=== PATIENT | male | born 1965 | race Caucasian/White ===

== ENCOUNTER 2020-06-26 16:11 | Outpatient (CLI) | payer BC, SELFPAY ==
[2020-06-27 23:29] LABS: SARS-CoV-2 RNA PCR Negative
== END 2020-06-26 16:12 | disposition home or self-care (01) ==
LOC: CHSLAB 16:20
DX: R06.00 Dyspnea, unspecified (principal); Z20.828 Contact with and (suspected) exposure to other viral communicable diseases
CPT/HCPCS: C9803; U0003

== ENCOUNTER 2020-07-04 15:01 | Emergency (ER) | payer BC, SELFPAY ==
--- NOTE | ~2020-07-04 | XR_ITS ---
EXAMINATION: XR chest 2V DATE: 07/04/2020 17:48 INDICATION: Cough and shortness of breath. Multiple myeloma. TECHNIQUE: PA and lateral views of the chest were obtained. COMPARISON: None FINDINGS: Predominately streaky and linear opacities at the anterior lung bases and favor atelectasis over pneu monia. Approximately 1.1 cm indeterminate nodule in the left upper lung zone projecting along the inf erior margin of the anterior second rib. No pleural effusion or pneumothorax. Heart size is normal. M oderate-sized hiatal hernia. Minimal anterior wedging of a lower thoracic vertebral bodies. IMPRESSION: 1. Opacities at the anterior lung bases and favor atelectasis over pneumonia. 2. 1.1 cm indeterminate left upper lobe pulmonary nodule. Recommend chest CT for further evaluation. 3. Moderate-sized hiatal hernia. Reviewed, dictated and finalized at location A. CIENCY ANALYST IMPRESSION: 1. Opacities at the anterior lung bases and favor atelectasis over pneumonia. 2. 1.1 cm indeterminate left upper lobe pulmonary nodule. Recommend chest CT fo r further evaluation. 3. Moderate-sized hiatal hernia.
[2020-07-04 15:17] VITALS: BP 163/97; PULSE 86; RESP 22; TEMP 36.8; O2SAT 95
[2020-07-04 16:56] LABS: Basophils Absolute Auto 0.17 K/mm3 (0.00-0.10); Basophils Percent Auto 1.8 % (0.0-1.0); Eosinophils Absolute Auto 0.78 K/mm3 (0.02-0.50); Eosinophils Percent Auto 8.3 % (1.0-6.0); Hematocrit 34.7 % (40.0-54.0); Hemoglobin 11.8 g/dL (14.0-18.0); Immature Granulocyte Absolute 0.09 K/mm3 (0.00-0.00); Lymphocytes Absolute Auto 1.28 K/mm3 (1.10-4.50); Lymphocytes Percent Auto 13.5 % (18.0-42.0); Mean Corpuscular Hemoglobin 31.7 pg (27.0-31.0); Mean Corpuscular Volume 93.3 fL (78.0-102.0); Mean Platelet Volume 8.8 fl (8.7-11.0); Monocytes Absolute Auto 0.96 K/mm3 (0.10-0.90); Monocytes Percent Auto 10.2 % (2.0-11.0); Neutrophils Absolute Auto 6.2 K/mm3 (1.7-7.2); Neutrophils Percent Auto 65.2 % (50.0-70.0); Platelet Count Result 329 K/mm3 (150-420); Red Blood Count 3.72 M/mm3 (4.70-6.10); Red Cell Distribution Width 13.2 % (11.6-14.4); White Blood Count 9.5 K/mm3 (4.8-10.8)
[2020-07-04 17:04] LABS: CRP 8.1 mg/dL (0.0-0.9)
[2020-07-04 17:16] LABS: Add Urine Microscopic? YES; Appearance Urine Clear (Clear); Bilirubin Urine Negative (Negative); Blood Urine Negative (Negative); Color Urine Yellow (Yellow); Glucose Urine UA Negative (Negative); Ketones Urine Trace (Negative); Leukocyte Esterase Ur Negative (Negative); Nitrate Urine Negative (Negative); Protein Urine Negative (Negative); Specific Grav Ur >= 1.030 (1.010-1.020); Urobilinogen Urine 0.2 mg/dL (0.2-1.0); pH Urine 5.5 (5.0-8.0)
--- NOTE | 2020-07-04 17:25 | ED.SOB ---
HPI - SOB/Dyspnea General Chief Complaint: Shortness of Breath/Dyspnea Stated Complaint: SOB,night sweats,cough. Time Seen by Provider: 07/04/20 15:25 Source: patient Mode of arrival: ambulatory Limitations: no limitations History of Present Illness HPI Narrative: Patient comes in with history of M Myeloma and stem cell transplant. He has had night sweats and chills off and on for 2 days. He has also had clear thin nasal discharge, and a cough. He has been treated for an abscessed tooth which has not totally resolved, but it is feeling better. He has had no fever, or other complaints. Chills have been moderate, resolved by themselves, and off and on for the last 2 days. MD elicited complaint: shortness of breath and cough Pertinent past history: other (stem cell transplant) Onset (ago): day(s) (2) Timing: intermittent Severity: moderate Exacerbating factors: nothing Relieving factors: nothing Associated symptoms: denies other symptoms Related Data Home Medications Medication Instructions Recorded Confirmed amoxicillin-pot clavulanate 1 tablet PO DAILY 07/04/20 07/04/20 lenalidomide [Revlimid] 10 mg PO HS 07/04/20 07/04/20 zolpidem 5 mg PO HS 07/04/20 07/04/20 Allergies Allergy/AdvReac Type Severity Reaction Status Date / Time No Known Allergies Allergy Verified 07/04/20 15:32 Review of Systems Constitutional: Constitutional: Reports no additional constitutional complaints Eyes: Eyes: Reports no additional eye complaints ENT: Reports system reviewed and no additional complaints, except as documented Cardiovascular: Comments: clear thin nasal discharge Respiratory: Respiratory: Reports no additional respiratory complaints Gastrointestinal: Gastrointestinal: Reports no additional gastrointestinal complaints Genitourinary: Genitourinary: Reports no additional male genitourinary complaints Musculoskeletal: Musculoskeletal: Reports no additional musculoskeletal complaints Integumentary/Breasts: Skin/Breast: Reports system reviewed and no additional complaints, except as docu Neurologic: Reports system reviewed and no additional complaints, except as documented Psychiatric: Psychiatric: Reports no additional psychiatric complaints Endocrine: Endocrine: Reports no additional endocrine complaints Hematologic/Lymphatic: Hematologic/Lymphatic: Reports no additional hematologic/lymphatic complaints Allergic/Immunologic: Allergic/Immunologic: Reports no additional allergic/immunologic complaints [facility] Past Medical History Medical History (Updated 07/05/20 @ 00:00 by Background Daemon) Multiple myeloma Surgical History Surgical History (Updated 07/04/20 @ 18:29 by Christiano Eugene MD) Stem cells transplant status Family History Family History (Updated 07/04/20 @ 18:36 by Christiano Eugene MD) Father Bladder cancer Social History Social History (Updated 07/04/20 @ 18:37 by Christiano Eugene MD) Smoking status: Former smoker Tobacco type: cigarettes Alcohol intake: current Alcohol use details: rare Substance use: never Exam Narrative: Exam Narrative: Chills at home off and on for 2 days, no fever, mild shortness of breath, cough, night sweats, clear runny nose, flu shot earlier this year Const: General: no acute distress HENMT: Head: normal to inspection Ears: external ears normal General nose exam: Normal external nose present Face and sinus: normal facial exam Other: clear thin runny nose Eyes: Conjunctivae: conjunctivae normal Neck: Neck: normal visual inspection and no lymphadenopathy Chest: Chest palpation & inspection: normal inspection of the chest Resp: Effort & Inspection: normal respiratory effort Auscultation: clear to auscultation bilaterally Cardio: Rate: regular rate Rhythm: regular rhythm GI: GI Palp: Yes Soft to palpation Skin: General skin exam: normal color Neuro: General: patient oriented x3 and moves all extremities Extrem: General: normal t
[2020-07-04 17:27] LABS: Bacteria Urine Trace /hpf; Mucus Urine Heavy /lpf; RBC Urine 0-2 /hpf (0-2); Squamous Epithelial Cell Urine Rare /hpf (Few); WBC Urine 0-3 /hpf (0-3)
[2020-07-04 17:32] LABS: SARS-CoV-2 Ag Negative (Negative)
[2020-07-04 17:54] LABS: Erythrocyte Sedimentation Rate 40 mm/hr (0-20)
[2020-07-04 18:04] VITALS: BP 121/81; PULSE 72; RESP 18; O2SAT 94
[2020-07-04] MEDS: cefTRIAXone 1 GM VIAL IM (19:09)
--- NOTE | 2020-07-04 19:11 | PC.NURSE ---
REPORT TO DEV
[2020-07-04 19:20] VITALS: BP 127/82; PULSE 73; RESP 20; O2SAT 95
== END 2020-07-04 19:25 | disposition home or self-care (01) ==
PROVIDERS: Emergency Provider Emergency Medicine
DX: J18.9 Pneumonia, unspecified organism (principal); Z20.822 Contact with and (suspected) exposure to COVID-19; Z87.891 Personal history of nicotine dependence; C90.00 Multiple myeloma not having achieved remission
CPT/HCPCS: 36415; 71046; 81001; 85025; 85652; 86140; 87040; 87426; 96372; 99283; A9270; C9803; J0696

== ENCOUNTER 2020-08-26 09:43 | Outpatient (CLI) | payer BC, SELFPAY ==
[2020-08-26 09:58] LABS: Basophils Absolute Auto 0.15 K/mm3 (0.00-0.10); Basophils Percent Auto 3.5 % (0.0-1.0); Eosinophils Absolute Auto 0.35 K/mm3 (0.02-0.50); Eosinophils Percent Auto 8.2 % (1.0-6.0); Hematocrit 40.7 % (40.0-54.0); Hemoglobin 13.2 g/dL (14.0-18.0); Immature Granulocyte Absolute 0.01 K/mm3 (0.00-0.00); Immature Granulocyte Percent A 0.2 % (0.0-0.0); Lymphocytes Absolute Auto 1.16 K/mm3 (1.10-4.50); Lymphocytes Percent Auto 27.3 % (18.0-42.0); Mean Corpuscular HGB Conc 32.4 g/dL (32.0-36.0); Mean Corpuscular Hemoglobin 30.1 pg (27.0-31.0); Mean Corpuscular Volume 92.9 fL (78.0-102.0); Mean Platelet Volume 8.6 fl (8.7-11.0); Monocytes Absolute Auto 0.59 K/mm3 (0.10-0.90); Monocytes Percent Auto 13.9 % (2.0-11.0); Neutrophils Percent Auto 46.9 % (50.0-70.0); Platelet Count Result 217 K/mm3 (150-420); Red Blood Count 4.38 M/mm3 (4.70-6.10); Red Cell Distribution Width 13.6 % (11.6-14.4); White Blood Count 4.3 K/mm3 (4.8-10.8)
[2020-08-26 11:11] LABS: Alanine Aminotransferase 29 U/L (16-63); Albumin Level 3.7 g/dL (3.4-5.0); Alkaline Phosphatase 55 U/L (46-116); Anion Gap 7 mmol/L (8-16); Aspartate Amino Transferase 20 U/L (15-37); Bilirubin,Total 0.6 mg/dL (0.00-1.00); Blood Urea Nitrogen 21 mg/dL (7-18); Calcium 8.5 mg/dL (8.5-10.1); Carbon Dioxide 30 mmol/L (21-32); Chloride 103 mmol/L (98-108); Estimated Glomerular Filt Rate > 60; Glucose 97 mg/dL (70-99); Osmolality Calculated 293 mOsm/kg (285-295); Potassium 4.3 mmol/L (3.5-5.1); Sodium 140 mmol/L (136-145)
== END 2020-08-26 09:44 | disposition home or self-care (01) ==
LOC: CHSLAB 09:48
DX: C90.01 Multiple myeloma in remission (principal)
CPT/HCPCS: 36415; 80053; 85025

== ENCOUNTER 2021-05-03 12:24 | Outpatient (CLI) | payer BC, SELFPAY ==
[2021-05-03 12:37] LABS: Hematocrit 38.6 % (40.0-54.0); Hemoglobin 12.7 g/dL (14.0-18.0); Mean Corpuscular HGB Conc 32.9 g/dL (32.0-36.0); Mean Corpuscular Hemoglobin 31.1 pg (27.0-31.0); Mean Corpuscular Volume 94.4 fL (78.0-102.0); Mean Platelet Volume 8.9 fl (8.7-11.0); Platelet Count Result 231 K/mm3 (150-420); Red Blood Count 4.09 M/mm3 (4.70-6.10); Red Cell Distribution Width 15.8 % (11.6-14.4); White Blood Count 4.9 K/mm3 (4.8-10.8)
[2021-05-03 12:58] LABS: Band Neutrophils Percent 0 % (0-6); Basophils Absolute Manual 0.04 K/mm3 (0-0.1); Basophils Percent Manual 1 % (0-1); Eosinophils Absolute Manual 0.39 K/mm3 (0.02-0.5); Eosinophils Percent Manual 8 % (1-6); Lymphocytes Absolute Manual 0.83 K/mm3 (1.1-4.5); Lymphocytes Percent Manual 17 % (18-44); Monocytes Absolute Manual 0.88 K/mm3 (0.1-0.90); Monocytes Percent Manual 18 % (3-9); Neutrophils Absolute Manual 2.74 K/mm3 (1.3-6.7); Neutrophils Percent Manual 56 % (46-73); Platelet Estimate Adequate (Adequate); Total Cells Counted 100
== END 2021-05-03 12:25 | disposition home or self-care (01) ==
LOC: CHSLAB 12:28
DX: C90.01 Multiple myeloma in remission (principal)
CPT/HCPCS: 36415; 85025

== ENCOUNTER 2021-07-12 23:42 | Emergency (ER) | payer BC, SELFPAY ==
--- NOTE | ~2021-07-12 | XR_ITS ---
XR chest 2V DATE: 07/13/2021 00:09 INDICATION: Chest pain. Currently in remission for multiple myeloma TECHNIQUE: 2 views COMPARISON: 07/04/2020 2 view chest FINDINGS: Normal heart size. No hilar or mediastinal enlargement. Moderate size hiatal hernia. Prominent wide transverse discoid atelectasis or scar at the right lung base. There is mild infiltrate or atelectasis at the base of the lingula. The lungs otherwise appear clear. No pleural effusion or pulmonary vascular congestion or pneumothorax. IMPRESSION: Prominent discoid atelectasis or scar at right lung base Mild infiltrate or atelectasis at the base of the lingula Moderate size hiatal hernia Reviewed, dictated and finalized at location A. P WORK PROGRAM AIDE
--- NOTE | 2021-07-12 23:46 | ECG_ITS ---
Measurements Intervals [place] Rate: 46 P: 38 CT: 186 QRS: 15 QRSD: 89 T: 63 QT: 464 QTc: 410 Interpretive Statements SINUS BRADYCARDIA BASELINE WANDER- II, III, AVF ABNORMAL ECG Electronically Signed On 07-13-2021 6:31:33 SOUS CHEF KITCHEN MANAGER by Dom Mnea D.O.
[2021-07-12 23:47] VITALS: BP 208/103; PULSE 67; RESP 16; TEMP 36.2; O2SAT 100
--- NOTE | 2021-07-12 23:51 | ED.CHESTPAIN ---
HPI - Chest Pain General Chief Complaint: Chest Pain Stated Complaint: chest pain Source: patient History of Present Illness HPI narrative: this is a 56-year-old gentleman that presents with some what he describes his chest discomfort pointing to his epigastric area with a burning sensation that started a couple of hours ago, he said that he ate a guard cell at earlier today and believes that that may have triggered some epigastric discomfort. There is no shortness of breath some nausea with no vomiting no diaphoresis, patient is a nonsmoker does have a family history of early heart disease in his father. Patient has a history of multiple myeloma which she is being treated for. Currently no fever chills no diarrhea constipation no flank pain no dysuria. complaint: chest discomfort and other ( epigastric discomfort) Onset (ago): hour(s) Timing of current episode: constant Onset: after eating Pain location: epigastric Pain radiation: none Severity: mild Quality: burning Related Data Home Medications Medication Instructions Recorded Confirmed lenalidomide [Revlimid] 10 mg PO HS 07/04/20 07/12/21 zolpidem 5 mg PO HS 07/04/20 07/12/21 Allergies Allergy/AdvReac Type Severity Reaction Status Date / Time No Known Allergies Allergy Verified 07/12/21 23:54 Review of Systems Review of Systems: All systems reviewed & are unremarkable except as noted in HPI and below PMFSH Past Medical History Medical History Multiple myeloma Surgical History Surgical History Stem cells transplant status Family History Family History Father Bladder cancer Social History Social History Smoking status: Former smoker Tobacco type: cigarettes Alcohol intake: current Alcohol use details: rare Substance use: never Exam Const: General: no acute distress and alert Orientation/consciousness: patient oriented x3 HENMT: Head: normal to inspection Eyes: Conjunctivae: conjunctivae normal Pupils: Equal, round and reactive pupils present Neck: Neck: normal visual inspection, no lymphadenopathy and no meningeal signs Chest: Chest palpation & inspection: normal inspection of the chest Resp: Effort & Inspection: normal respiratory effort Cardio: Rate: regular rate Rhythm: regular rhythm GI: GI Palp: Yes Soft to palpation and Yes Tenderness to palpation present (GI) ( Epigastric tenderness with palpation) Urinary Catheter: Urinary Catheter: patent and draining Back/Spine/Pelvis: Back: no CVA tenderness Skin: General skin exam: normal color Rashes: no rashes Neuro: General: patient oriented x3 and moves all extremities Extrem: General: normal to inspection and no pedal edema Psych: Appearance: grossly normal Mental Status: mental status grossly normal Affect: normal affect Critical Care Time Critical Care Time Critical Care Time: No Discharge Plan Discharge Clinical Impression: Upper respiratory tract infection Qualifiers: URI type: unspecified URI Qualified Code(s): J06.9 - Acute upper respiratory infection, unspecified GERD (gastroesophageal reflux disease) Qualifiers: Esophagitis presence: esophagitis presence not specified Qualified Code(s): K21.9 - Gastro-esophageal reflux disease without esophagitis Patient Disposition: Home, Self-Care Condition: Stable Instructions: Antibiotic Form, Upper Respiratory Infection (ED), GERD (Gastroesophageal Reflux Disease) (ED) Additional Instructions: take medicine as prescribed and follow-up primary care physician if symptoms persist or worsen. Prescriptions: New pantoprazole [Protonix] 40 mg tablet,delayed release (DR/EC) 40 mg PO QAM 28 Days Qty: 28 RF: 0 azithromycin [Zithromax Z-Ashish] 250 mg tablet See Rx In
[2021-07-12] MEDS: MAG HYDROX/ALUMINUM HYD/SIMETH 30 ML, PHENobarb/HYOSCY/ATROPINE/SCOP 32.4 MG, LIDOCAINE... PO (23:52)
[2021-07-13 00:19] LABS: Hematocrit 38.1 % (40.0-54.0); Hemoglobin 12.5 g/dL (14.0-18.0); Mean Corpuscular HGB Conc 32.8 g/dL (32.0-36.0); Mean Corpuscular Hemoglobin 30.6 pg (27.0-31.0); Mean Corpuscular Volume 93.2 fL (78.0-102.0); Mean Platelet Volume 9.4 fl (8.7-11.0); Platelet Count Result 227 K/mm3 (150-420); Red Blood Count 4.09 M/mm3 (4.70-6.10); Red Cell Distribution Width 15.9 % (11.6-14.4); White Blood Count 5.7 K/mm3 (4.8-10.8)
[2021-07-13 00:38] LABS: Alanine Aminotransferase 24 U/L (16-63); Albumin Level 3.5 g/dL (3.4-5.0); Alkaline Phosphatase 52 U/L (46-116); Anion Gap 7 mmol/L (8-16); Aspartate Amino Transferase 19 U/L (15-37); Bilirubin,Total 0.3 mg/dL (0.00-1.00); Blood Urea Nitrogen 18 mg/dL (7-18); Calcium 8.4 mg/dL (8.5-10.1); Carbon Dioxide 29 mmol/L (21-32); Chloride 102 mmol/L (98-108); Estimated CRCL calculation 58 ml/min; Estimated Glomerular Filt Rate 57; Glucose 121 mg/dL (70-99); Osmolality Calculated 288 mOsm/kg (285-295); Potassium 3.8 mmol/L (3.5-5.1); Sodium 138 mmol/L (136-145); Troponin I 9.9 ng/L (0.00-60.4)
--- NOTE | 2021-07-13 00:49 | PC.NURSE ---
patient states he is feeling better since Gi cocktail, erp at bedside speaking with patient regarding plan of care for discharge. patient's bp has decreased since he got here and is now 152/94
[2021-07-13 00:50] LABS: Band Neutrophils Percent 0 % (0-6); Basophils Absolute Manual 0.11 K/mm3 (0-0.1); Basophils Percent Manual 2 % (0-1); Eosinophils Absolute Manual 0.17 K/mm3 (0.02-0.5); Eosinophils Percent Manual 3 % (1-6); Lymphocytes Absolute Manual 1.08 K/mm3 (1.1-4.5); Lymphocytes Percent Manual 19 % (18-44); Monocytes Absolute Manual 0.79 K/mm3 (0.1-0.90); Monocytes Percent Manual 14 % (3-9); Neutrophils Absolute Manual 3.53 K/mm3 (1.3-6.7); Neutrophils Percent Manual 62 % (46-73); Platelet Estimate Adequate (Adequate)
[2021-07-13] MEDS: AZITHROMYCIN 250 MG TABLET 500 MG PO (00:52)
[2021-07-13 00:59] VITALS: BP 152/94; PULSE 47; RESP 16; TEMP 36.4; O2SAT 100
== END 2021-07-13 01:01 | disposition home or self-care (01) ==
PROVIDERS: Emergency Provider Emergency Medicine
DX: J06.9 Acute upper respiratory infection, unspecified (principal); K21.9 Gastro-esophageal reflux disease without esophagitis
CPT/HCPCS: 36415; 71046; 80053; 84484; 85025; 93005; 99283; 99284; A9270

== ENCOUNTER 2021-09-10 16:23 | Emergency (ER) | payer BC, SELFPAY ==
--- NOTE | ~2021-09-10 | XR_ITS ---
EXAMINATION: XR chest 2V EXAM DATE: 09/10/2021 17:22 INDICATION: Cough and SOB x 2 days. Multiple myeloma, in remission. TECHNIQUE: Frontal and lateral projections of the chest obtained and reviewed. Comparison is made to prior examination from 07/12/2021. FINDINGS: Small amount of bibasilar atelectasis or pneumonia, mild progression compared to previous examination. Mid and upper lung zones are clear. There is no pneumothorax suspected. There are no ple ural effusions. Cardiomediastinal silhouette is normal. There is moderate sliding gastroesophageal hi atal hernia. IMPRESSION: 1. Mild progression in scattered bibasilar atelectasis or pneumonia. 2. Moderate hiatal hernia. Reviewed, dictated and finalized at location .
--- NOTE | 2021-09-10 16:34 | ED.SOB ---
HPI - SOB/Dyspnea General Chief Complaint: Shortness of Breath/Dyspnea Stated Complaint: trouble breathing Time Seen by Provider: 09/10/21 16:34 Source: patient History of Present Illness HPI Narrative: 56-year-old male with multiple myeloma status post stem cell transplant in August of 2019, on Revlimid, history of pneumonia presents to the ER with a 1 day history of -- nonproductive cough -- shortness of breath -- bodyache his has similar symptoms. MD elicited complaint: shortness of breath, cough and pain with inspiration Onset (ago): day(s) ( started yesterday evening) Severity: moderate Exacerbating factors: nothing Relieving factors: nothing Associated symptoms: denies other symptoms Related Data Home oxygen amount: none Home Medications Medication Instructions Recorded Confirmed lenalidomide [Revlimid] 10 mg PO HS 07/04/20 09/10/21 Allergies Allergy/AdvReac Type Severity Reaction Status Date / Time No Known Allergies Allergy Verified 07/12/21 23:54 Review of Systems Review of Systems: All systems reviewed & are unremarkable except as noted in HPI and below Constitutional: Constitutional: Reports as per HPI and Reports no additional constitutional complaints Eyes: Eyes: Reports as per HPI and Reports no additional eye complaints ENT: Reports system reviewed and no additional complaints, except as documented Cardiovascular: Cardiovascular: Reports as per HPI and Reports no additional cardiovascular complaints Respiratory: Respiratory: Reports as per HPI, Reports no additional respiratory complaints, Reports cough and Reports dyspnea Comments: he used a bronchodilator inhaler without much relief. Gastrointestinal: Gastrointestinal: Reports as per HPI Comments: Occasional diarrhea Genitourinary: Genitourinary: Reports no additional male genitourinary complaints Musculoskeletal: Musculoskeletal: Reports no additional musculoskeletal complaints and Reports as per HPI Integumentary/Breasts: Skin/Breast: Reports system reviewed and no additional complaints, except as docu Neurologic: Reports system reviewed and no additional complaints, except as documented Psychiatric: Psychiatric: Reports no additional psychiatric complaints Endocrine: Endocrine: Reports no additional endocrine complaints Hematologic/Lymphatic: Hematologic/Lymphatic: Reports no additional hematologic/lymphatic complaints Allergic/Immunologic: Allergic/Immunologic: Reports no additional allergic/immunologic complaints [facility] Past Medical History Medical History (Updated 09/10/21 @ 18:18 by Louis Bryant MD) Multiple myeloma Pneumonia Surgical History Surgical History Stem cells transplant status Family History Family History Father Bladder cancer Social History Social History Smoking status: Former smoker Tobacco type: cigarettes Alcohol intake: current Alcohol use details: rare Substance use: never Exam Const: General: no acute distress and alert Orientation/consciousness: patient oriented x3 HENMT: Head: normal to inspection Eyes: Conjunctivae: conjunctivae normal Pupils: Equal, round and reactive pupils present Neck: Neck: normal visual inspection and no lymphadenopathy Chest: Chest palpation & inspection: normal inspection of the chest Resp: Effort & Inspection: normal respiratory effort Auscultation: clear to auscultation bilaterally Cardio: Rate: regular rate Rhythm: regular rhythm GI: GI Palp: Yes Soft to palpation : General: Yes no CVA tenderness Testes: Testes normal Back/Spine/Pelvis: Back: no CVA tenderness Skin: General skin exam: normal color Rashes: no rashes Neuro: General: patient oriented x3, moves all extremities, no meningeal signs, no focal motor deficits and CN's II-XI intact bi
[2021-09-10 16:36] VITALS: BP 170/90; PULSE 86; RESP 24; TEMP 37; O2SAT 97
--- NOTE | 2021-09-10 16:46 | ECG_ITS ---
Measurements Intervals [place] Rate: 81 P: 23 WI: 187 QRS: 23 QRSD: 86 T: 63 QT: 385 QTc: 447 Interpretive Statements SINUS RHYTHM NORMAL ECG COMPARED TO ECG 07/12/2021 23:55:39 SINUS RHYTHM NOW PRESENT Electronically Signed On 09-11-2021 11:06:59 CDT by Yakov Adames M.D.
[2021-09-10 17:20] LABS: Hematocrit 35.9 % (40.0-54.0); Hemoglobin 11.7 g/dL (14.0-18.0); Mean Corpuscular HGB Conc 32.6 g/dL (32.0-36.0); Mean Corpuscular Hemoglobin 30.2 pg (27.0-31.0); Mean Corpuscular Volume 92.8 fL (78.0-102.0); Mean Platelet Volume 9.3 fl (8.7-11.0); Platelet Count Result 151 K/mm3 (150-420); Red Blood Count 3.87 M/mm3 (4.70-6.10); Red Cell Distribution Width 16.7 % (11.6-14.4); White Blood Count 2.6 K/mm3 (4.8-10.8)
[2021-09-10 17:35] LABS: D Dimer 0.44 mg/L (0.19-0.50); Partial Thromboplastin Time 26.6 SEC (23.90-30.70); Prothrombin Time 10.5 Seconds (9.50-12.10)
[2021-09-10 17:39] LABS: Lactic Acid Reflex 1.4 mmol/L (0.4-2.0)
[2021-09-10 17:41] LABS: Alanine Aminotransferase 37 U/L (16-63); Albumin Level 3.5 g/dL (3.4-5.0); Alkaline Phosphatase 65 U/L (46-116); Anion Gap 7 mmol/L (8-16); Aspartate Amino Transferase 35 U/L (15-37); Band Neutrophils Percent 0 % (0-6); Basophils Absolute Manual 0.07 K/mm3 (0-0.1); Basophils Percent Manual 3 % (0-1); Bilirubin,Total 0.6 mg/dL (0.00-1.00); Blood Urea Nitrogen 19 mg/dL (7-18); Calcium 8.1 mg/dL (8.5-10.1); Carbon Dioxide 29 mmol/L (21-32); Chloride 101 mmol/L (98-108); Eosinophils Percent Manual 0 % (1-6); Estimated CRCL calculation 62 ml/min; Estimated Glomerular Filt Rate > 60; Glucose 98 mg/dL (70-99); Lymphocytes Absolute Manual 0.39 K/mm3 (1.1-4.5); Lymphocytes Percent Manual 15 % (18-44); Monocytes Absolute Manual 0.33 K/mm3 (0.1-0.90); Monocytes Percent Manual 13 % (3-9); NT Pro B Type Natriuretic Pept 199 pg/mL (0-125); Neutrophils Absolute Manual 1.79 K/mm3 (1.3-6.7); Neutrophils Percent Manual 69 % (46-73); Osmolality Calculated 286 mOsm/kg (285-295); Platelet Estimate Adequate (Adequate); Potassium 3.6 mmol/L (3.5-5.1); Sodium 137 mmol/L (136-145); Total Protein 6.9 g/dL (6.4-8.2); Troponin I 7.5 ng/L (0.00-60.4)
[2021-09-10 17:54] VITALS: BP 150/80; PULSE 78; RESP 18; O2SAT 96
[2021-09-10 18:01] LABS: Influenza A QL RT-PCR Negative (Negative); Influenza B QL RT-PCR Negative (Negative); SARS-CoV-2 RNA PCR Negative (Negative)
[2021-09-10] MEDS: AZITHROMYCIN 250 MG TABLET 500 MG PO (18:29)
[2021-09-10 18:30] VITALS: BP 136/88; PULSE 76; RESP 16; TEMP 36.4; O2SAT 96
== END 2021-09-10 18:32 | disposition home or self-care (01) ==
PROVIDERS: Emergency Provider Internal Medicine Critical Care Medicine
DX: J06.9 Acute upper respiratory infection, unspecified (principal); J20.9 Acute bronchitis, unspecified; D70.2 Other drug-induced agranulocytosis; R05.9 Cough, unspecified; R06.02 Shortness of breath; Z20.822 Contact with and (suspected) exposure to COVID-19
CPT/HCPCS: 36415; 71046; 80053; 83605; 83880; 84484; 85025; 85380; 85610; 85730; 87502; 93005; 99284; A9270; C9803; U0003; U0005

== ENCOUNTER 2022-01-07 21:32 | Emergency (ER) | payer BC, SELFPAY ==
--- NOTE | ~2022-01-07 | CT_ITS ---
EXAMINATION: CT abdomen pelvis wo con DATE: 01/07/2022 22:50 INDICATION: epigastric abdominal pain. hx of CA. multiple myeloma TECHNIQUE: Computed tomography (CT) of the abdomen and pelvis was performed without intravenous contr ast. Automated exposure control and iterative reconstruction technique were employed. The dose-length product was 433.78 mGy-cm. COMPARISON: None. FINDINGS: Lower thorax: Bibasilar scar/atelectasis. Large hiatal hernia. Liver: Normal. Mild intrahepatic biliary duct dilatation. Biliary/Gallbladder: Cholelithiasis. Mild extrahepatic or duct dilatation and inflammation. Calcified gallstones lodged in the distal common bile duct. Pancreas: No mass or duct dilation. Spleen: Normal. Adrenals:No mass. Kidneys: No mass, stone, or hydronephrosis. GI tract: No small or large bowel dilation. Appendix not visualized. Mesentery/Peritoneum: No ascites, mass, or free air. Retroperitoneum: No mass. Atherosclerotic abdominal aortic and/or arterial calcifications. Pelvis: Bladder wall thickening, possibly secondary to osseous outlet compromise. Soft Tissues: Small fat-containing bilateral inguinal hernias Bones: Mild anterior wedge deformity at T10. Patchy areas of sclerosis within the axial bone marrow may be related to the diagnosis of or treatment for multiple myeloma. Typical punched-out myeloma les ions are not present. IMPRESSION: Choledocholithiasis. Reviewed, dictated and finalized at location K. IMPRESSION: Choledocholithiasis.
[2022-01-07 21:55] VITALS: BP 176/98; PULSE 75; RESP 20; TEMP 36.6; O2SAT 99
--- NOTE | 2022-01-07 22:35 | ECG_ITS ---
Measurements Intervals [place] Rate: 52 P: 35 HI: 182 QRS: 12 QRSD: 90 T: 61 QT: 457 QTc: 428 Interpretive Statements SINUS BRADYCARDIA BASELINE WANDER- II, III BORDERLINE ECG Electronically Signed On 01-08-2022 8:02:42 CDT by Dom Mena D.O.
[2022-01-07] MEDS: SODIUM CHLORIDE 0.9% IV 1,000 ML 999 ML IV CONT (22:52)
[2022-01-07] MEDS: PANTOPRAZOLE SODIUM IV 40 MG VIAL IV PUSH (22:53)
[2022-01-07] MEDS: ONDANSETRON INJ 4 MG/2 ML VIAL IV PUSH (22:56)
[2022-01-07] MEDS: MORPHINE SULFATE (*CRX) 4 MG/ML INJ IV PUSH (22:56)
[2022-01-07 23:03] LABS: Hematocrit 38.8 % (40.0-54.0); Mean Corpuscular HGB Conc 33.5 g/dL (32.0-36.0); Mean Corpuscular Hemoglobin 32.8 pg (27.0-31.0); Mean Platelet Volume 8.9 fl (8.7-11.0); Platelet Count Result 193 K/mm3 (150-420); Red Blood Count 3.96 M/mm3 (4.70-6.10); Red Cell Distribution Width 14.9 % (11.6-14.4); White Blood Count 3.7 K/mm3 (4.8-10.8)
[2022-01-07 23:17] LABS: Band Neutrophils Percent 0 % (0-6); Basophils Absolute Manual 0.03 K/mm3 (0-0.1); Basophils Percent Manual 1 % (0-1); Eosinophils Percent Manual 11 % (1-6); Lymphocytes Absolute Manual 0.48 K/mm3 (1.1-4.5); Lymphocytes Percent Manual 13 % (18-44); Monocytes Absolute Manual 0.62 K/mm3 (0.1-0.90); Monocytes Percent Manual 17 % (3-9); Neutrophils Absolute Manual 2.14 K/mm3 (1.3-6.7); Neutrophils Percent Manual 58 % (46-73)
[2022-01-07 23:18] LABS: Platelet Estimate Adequate (Adequate)
[2022-01-07 23:22] LABS: Alanine Aminotransferase 483 U/L (16-63); Albumin Level 3.5 g/dL (3.4-5.0); Alkaline Phosphatase 232 U/L (46-116); Anion Gap 6 mmol/L (8-16); Aspartate Amino Transferase 407 U/L (15-37); Bilirubin,Total 8.9 mg/dL (0.00-1.00); Blood Urea Nitrogen 21 mg/dL (7-18); Calcium 8.3 mg/dL (8.5-10.1); Carbon Dioxide 29 mmol/L (21-32); Chloride 101 mmol/L (98-108); Estimated CRCL calculation 70 ml/min; Estimated Glomerular Filt Rate > 60; Glucose 102 mg/dL (70-99); Lipase 97 U/L (73-393); Osmolality Calculated 285 mOsm/kg (285-295); Partial Thromboplastin Time 24.8 SEC (23.90-30.70); Potassium 3.9 mmol/L (3.5-5.1); Prothrombin Time 10.6 Seconds (9.50-12.10); Sodium 136 mmol/L (136-145); Total Protein 6.9 g/dL (6.4-8.2)
[2022-01-07 23:25] LABS: Lactic Acid Reflex 0.4 mmol/L (0.4-2.0)
--- NOTE | 2022-01-07 23:50 | PC.NURSE ---
Pt resting, no c/o at this time, states pain medicine has helped, ERP in to speak c pt about CT results and POC. Pt wants to try a surgeon at [place], call placed to [facility].
[2022-01-07 23:56] VITALS: BP 178/96; PULSE 60; RESP 18; TEMP 36.9; O2SAT 98
--- NOTE | 2022-01-07 23:56 | PC.NURSE ---
[facility] Zabala will call oncall surgeon Dr Rudd, will await call back.
--- NOTE | 2022-01-08 00:17 | PC.NURSE ---
Call back from Neela, accepting Dr Rudd for consult of pt tomorrow, will await call back from Dr Jennings, hospitalist. Pt informed on POC for transfer.
[2022-01-08] MEDS: ONDANSETRON INJ 4 MG/2 ML VIAL IV PUSH (00:47)
[2022-01-08] MEDS: MORPHINE SULFATE (*CRX) 2 MG/ML INJ IV PUSH ×2 (00:48→02:26)
--- NOTE | 2022-01-08 01:02 | ED.ABDPAIN ---
HPI - Abdominal Pain General Chief Complaint: Abdominal Pain Stated Complaint: abd pain, possible blood in urine Time Seen by Provider: 01/07/22 21:36 Source: patient and RN notes reviewed Mode of arrival: ambulatory Limitations: no limitations History of Present Illness MD elicited complaint: abdominal pain Onset (ago): day(s) (1) Pain Consistency: constant Location: RUQ Severity: moderate Pain scale (0-10): 6 Quality: cramping and aching Migration to: no migration Exacerbating factors: nothing Relieving factors: nothing Associated symptoms: nausea, vomiting and diarrhea Related Data Home Medications Medication Instructions Recorded Confirmed lenalidomide 10 mg capsule 10 mg PO HS 07/04/20 02/04/22 (Revlimid) aspirin 81 mg tablet,delayed 81 mg PO HS 01/07/22 02/04/22 release (Adult Low Dose Aspirin) pantoprazole 40 mg tablet,delayed 40 mg PO DAILY 01/07/22 02/04/22 release Allergies Allergy/AdvReac Type Severity Reaction Status Date / Time No Known Allergies Allergy Verified 01/31/22 13:04 Review of Systems Review of Systems: All systems reviewed & are unremarkable except as noted in HPI and below Constitutional: Constitutional: Reports no additional constitutional complaints Eyes: Eyes: Reports no additional eye complaints ENT: Reports system reviewed and no additional complaints, except as documented Cardiovascular: Cardiovascular: Reports no additional cardiovascular complaints Respiratory: Respiratory: Reports no additional respiratory complaints Gastrointestinal: Gastrointestinal: Reports abdominal pain, Reports heartburn and Reports nausea Musculoskeletal: Musculoskeletal: Reports no additional musculoskeletal complaints Integumentary/Breasts: Skin/Breast: Reports system reviewed and no additional complaints, except as docu Neurologic: Reports system reviewed and no additional complaints, except as documented Psychiatric: Psychiatric: Reports no additional psychiatric complaints Endocrine: Endocrine: Reports no additional endocrine complaints Hematologic/Lymphatic: Hematologic/Lymphatic: Reports no additional hematologic/lymphatic complaints Allergic/Immunologic: Allergic/Immunologic: Reports no additional allergic/immunologic complaints [facility] Past Medical History Medical History At risk for bleeding associated with tonsillectomy and adenoidectomy Cholelithiasis with choledocholithiasis Hiatal hernia Multiple myeloma on oral chemo Pneumonia Surgical History Surgical History History of tonsillectomy Hx laparoscopic cholecystectomy 01/10/22 Stem cells transplant status Family History Family History Father Bladder cancer Acute myocardial infarction Social History Social History Social History: 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 he smoked when he was a teen. code status: Full code Smoking status: Former smoker Tobacco type: cigarettes Alcohol intake: current Drinks per week: 1 Alcohol use details: rare Substance use: never Substance use type: does not use Spiritual care concerns: No Exam Const: General: healthy appearing and no acute distress Nutritional Appearance: well nourished Orientation/consciousness: patient oriented x3 Limitations: no limitations HENMT: Head: normal to inspection Ears: external ears normal, TM's normal bilaterally and EAC's normal General nose exam: Normal external nose present and Normal nares present Face and sinus: normal facial exam and sinuses nontender Mouth: Yes Normal oral and palatal mucosa present and Yes moist mucous membranes Teeth and gingiva: dentition normal Throat: post
[2022-01-08] MEDS: SODIUM CHLORIDE 0.9% IV 1,000 ML 125 ML IV CONT (01:09)
--- NOTE | 2022-01-08 01:09 | PC.NURSE ---
accepted for transfer p ERP Dr Ang spoke to Dr Jennings. Pt resting, pain less, awaiting call back for bed assisgnment. VSS.
[2022-01-08 01:12] VITALS: BP 162/97; PULSE 64; RESP 18; TEMP 36.9; O2SAT 98
[2022-01-08 01:19] LABS: SARS-CoV-2 RNA PCR Negative (Negative)
--- NOTE | 2022-01-08 01:54 | PC.NURSE ---
Pt will go to Rm 246 at [place], # given for report. Nurse report called to Jero.
[2022-01-08 02:03] VITALS: BP 162/89; PULSE 56; RESP 20; TEMP 36.8; O2SAT 98
--- NOTE | 2022-01-08 02:18 | PC.NURSE ---
Report given to EMMETT pt.loaded for transfer.
== END 2022-01-08 02:31 | disposition short-term general hospital (02) ==
PROVIDERS: Emergency Provider Emergency Medicine
DX: K80.50 Calculus of bile duct without cholangitis or cholecystitis without obstruction (principal); Z20.822 Contact with and (suspected) exposure to COVID-19
CPT/HCPCS: 36415; 74176; 80053; 83605; 83690; 84484; 85025; 85610; 85730; 93005; 96361; 96374; 96375; 96376; 99285; C9113; C9803; J2270; J2405; J7030; U0003; U0005

== ENCOUNTER 2022-01-08 03:05 | Observation (INO) | payer BC, SELFPAY ==
--- NOTE | ~2022-01-08 | XR_ITS ---
EXAMINATION: XR ERCP DATE: 01/09/2022 14:00 CDT INDICATION: ATTEMPTED ERCP . TECHNIQUE: 1 fluoroscopic image of the right upper quadrant were obtained during ERCP performed by th e surgeon. I was not present in the operating room. Fluoroscopy exposure time was 21.8 seconds. Cumul ative dose was 4.02 mGy. COMPARISON: 01/07/22 FINDINGS: Single intraoperative image demonstrates an endoscope in the third portion of the duodenum. IMPRESSION: Fluoroscopic documentation of ERCP. Please refer to the operative note for complete procedural detail s . Reviewed, dictated and finalized at location K. IMPRESSION: Fluoroscopic documentation of ERCP. Please refer to the operative note for comp lete procedural details .
--- NOTE | ~2022-01-08 | XR_ITS ---
XR cholangiogram surg 1st inj DATE: 01/10/2022 12:55 INDICATION: Laparoscopic cholecystectomy TECHNIQUE: Serial images of biliary tree during cystic duct injection of contrast material 20.8 seconds fluoroscopy time 7.56 mGy COMPARISON: None FINDINGS: There is tapered narrowing of the distal common bile duct, with contrast material flowing f reely into the duodenum, without apparent obstruction. No intraluminal mass lesion or stone of the co mmon bile duct or common hepatic duct or opacified left or right hepatic ducts. IMPRESSION: Mild tapered narrowing of the distal common bile duct. No common bile duct stone or obstr uction is noted. Reviewed, dictated and finalized at Location [facility]. Reviewed, dictated and finalized at location B. IMPRESSION: Mild tapered narrowing of the distal common bile duct. No common bi le duct stone or obstruction is noted.
--- NOTE | 2022-01-08 03:07 | ADMGEN ---
This patient, Roman Hodges, was admitted to Medical Room 246-. Patient/family oriented to hospital policies and general routines including ID bracelet, bed and alarms, visiting hours, pain management, procedures, bathroom and other care routines, personal items, smoking policy, room service/diet, and visiting hours. Information on how to activate the Rapid Response Team has been discussed. Patient/Family are encouraged to report perceived risks to care and to ask questions if they do not understand what they are told or what they should do.
[2022-01-08 03:14] VITALS: BP 177/98; PULSE 65; RESP 16; TEMP 36.7; O2SAT 99
[2022-01-08 03:42] LABS: Basophils Absolute Auto 0.1 K/mm3 (0.0-0.1); Eosinophils Absolute Auto 0.3 K/mm3 (0-0.3); Eosinophils Percent Auto 6.8 % (0-4.4); Hematocrit 37.8 % (42.0-52.0); Hemoglobin 13.1 g/dL (14.0-18.0); Immature Granulocyte Absolute 0.01 K/mm3 (0.00-0.031); Immature Granulocyte Percent A 0.3 % (0-0.5); Lymphocytes Absolute Auto 0.25 K/mm3 (0.9-3.2); Lymphocytes Percent Auto 6.3 % (18.3-44.2); Mean Corpuscular HGB Conc 34.7 g/dl (32-36); Mean Corpuscular Hemoglobin 33.2 pg (26-34); Mean Corpuscular Volume 95.9 fl (80-100); Mean Platelet Volume 9.1 fl (7.4-10.4); Monocytes Absolute Auto 0.9 K/mm3 (0.1-0.6); Monocytes Percent Auto 21.8 % (2.6-8.5); Neutrophils Absolute Auto 2.5 K/mm3 (1.3-6.7); Neutrophils Percent Auto 62.8 % (45.5-73.1); Platelet Count Result 183 k/mm3 (150-375); Red Blood Count 3.94 M/mm3 (4.6-6.20); Red Cell Distribution Width 15.1 % (11.5-14.5)
[2022-01-08] MEDS: MORPHINE SULFATE (*CRX) 2 MG/ML INJ IV PUSH ×2 (03:52→06:36)
[2022-01-08 03:53] LABS: Partial Thromboplastin Time 25.6 SECONDS (22.3-36.8)
[2022-01-08] MEDS: DEXTROSE 5%/0.45% SOD CHL 1,000 ML 100 ML IV CONT ×2 (03:53→13:57)
[2022-01-08 04:16] VITALS: BP 190/93
[2022-01-08 04:18] LABS: Alanine Aminotransferase 417 U/L (6-50); Alkaline Phosphatase 228 U/L (38-126); Anion Gap 5 mmol/L (8-16); Aspartate Amino Transferase 397 U/L (17-59); Bilirubin,Total 7.9 mg/dL (0.2-1.3); Blood Urea Nitrogen 17 mg/dL (9-20); Calcium 7.9 mg/dL (8.4-10.2); Carbon Dioxide 27 mmol/L (22-30); Chloride 103 mmol/L (98-107); Estimated Glomerular Filt Rate > 60; Glucose 101 mg/dL (65-110); Potassium 3.7 mmol/L (3.4-5.0); Sodium 135 mmol/L (137-145)
--- NOTE | 2022-01-08 07:28 | PM.IMHP ---
H&P: HPI History of Present Illness Date/Time: 01/08/22 07:28 this is a 56 yr old male patien who has a hx of multiple myeloma. He takes a daily chemo pill and is seen by [facility]. he stated that he had an upset stomach 2 weeks ago and was told that he has a hiatal hernia. He stated that he recently had a pet scan. he stated that he has been taking prilosec which seems to help. He stated that this Friday he ate some lasagna and that upset his stomach. He took the prilosec and that did not help. He went to [facility] this am and had a ct scan that shows Choledocholithiasis. The patient has elevated liver enzymes. he is jaundice and has severe pain. the morphine is not holding his pain. he has right upper quadrant pain. A consult was placed for surgery. He is being admitted for observation for Choledocholithiasis. Chief Complaint: upper abd pain Review of Systems Review of Systems: All systems reviewed & are unremarkable except as noted in HPI and below Constitutional: Constitutional: Reports as per HPI and Reports no additional constitutional complaints Eyes: Eyes: Reports as per HPI and Reports no additional eye complaints ENT: Reports system reviewed and no additional complaints, except as documented and Reports Normal hearing present Cardiovascular: Cardiovascular: Reports no additional cardiovascular complaints Respiratory: Respiratory: Reports no additional respiratory complaints and Reports no additional respiratory complaints Gastrointestinal: Gastrointestinal: Reports as per HPI and Reports no additional gastrointestinal complaints Musculoskeletal: Musculoskeletal: Reports no additional musculoskeletal complaints Integumentary/Breasts: Skin/Breast: Reports system reviewed and no additional complaints, except as docu and Reports as per HPI Neurologic: Reports system reviewed and no additional complaints, except as documented, Reports as per HPI and Reports Normal hearing present Psychiatric: Psychiatric: Reports no additional psychiatric complaints and Reports as per HPI Endocrine: Endocrine: Reports no additional endocrine complaints Hematologic/Lymphatic: Hematologic/Lymphatic: Reports no additional hematologic/lymphatic complaints Allergic/Immunologic: Allergic/Immunologic: Reports no additional allergic/immunologic complaints [facility] Past Medical History Medical History (Updated 01/08/22 @ 07:38 by Priti Wheeler NP) At risk for bleeding associated with tonsillectomy and adenoidectomy Hiatal hernia Multiple myeloma on oral chemo Pneumonia Surgical History Surgical History (Updated 01/08/22 @ 07:38 by Priti Wheeler NP) History of tonsillectomy Stem cells transplant status Family History Family History (Updated 01/08/22 @ 07:38 by Priti Wheeler NP) Father Bladder cancer Acute myocardial infarction Social History Social History (Updated 01/08/22 @ 07:40 by Priti Wheeler NP) Social History: he is and his is the durable power of litigation attorney. 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 he smoked when he was a teen. code status: Full code Smoking status: Former smoker Tobacco type: cigarettes Alcohol intake: current Drinks per week: 1 Alcohol use details: rare Substance use: never Substance use type: does not use Spiritual care concerns: No Meds Home Medications and Allergies Home Medications Medication Instructions Recorded Confirmed Type lenalidomide 10 mg capsule 10 mg PO HS 07/04/20 01/08/22 History (Revlimid) aspirin 81 mg tablet,delayed 81 mg PO HS 01/07/22 01/08/22 History release (Adult Low Dose Aspirin) pantoprazole 40 mg tablet,delayed 40 mg PO DAILY 01/07/22 01/08/22 History release Allergies Allergy/AdvReac Type Severity Reaction Status Date / Time No Known Allergies Allergy Verified 07/12/21 23:54 Vital Signs Vital Signs - 24 hr 01/08/22 03:1
[2022-01-08 07:51] VITALS: BP 169/94
[2022-01-08] MEDS: HYDROmorphone HCL INJ (*CRX) 1 MG/ML SYR IV PUSH ×2 (09:22→14:53)
--- NOTE | 2022-01-08 09:39 | PM.CNGS ---
Assessment and Plan Assessment and plan (1) Cholelithiasis with choledocholithiasis: Code(s): K80.70 - Calculus of gallbladder and bile duct without cholecystitis without obstruction Status: Acute Assessment and Plan: Patient presented with elevated LFTs and CT evidence of a calcified gallstone in the distal common bile duct with intra and extrahepatic biliary ductal dilatation. Agree with GI consultation. He has been added on for an ERCP tomorrow. Discussed with the patient that he will likely need a cholecystectomy during this hospitalization, but will await ERCP results. We discussed the details of a laparoscopic cholecystectomy, possible open, under general anesthesia. Description of the procedure, risks, benefits, expected outcomes, and expected recovery were discussed with the patient in detail. All questions were answered. Repeat labs tomorrow. Okay from our standpoint to have clear liquids today. (2) Multiple myeloma: Code(s): C90.00 - Multiple myeloma not having achieved remission Status: Acute (3) Elevated LFTs: Code(s): R79.89 - Other specified abnormal findings of blood chemistry Status: Acute Assessment and Plan: LFTs elevated on admission with a total bilirubin of 8.3. Likely related to the choledocholithiasis. GI has been consulted and planning ERCP tomorrow. I also added IV Zosyn for empiric coverage of cholangitis. Continue to trend labs. 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 This is on hold and was last taken 2 nights ago. (5) Hiatal hernia: Code(s): K44.9 - Diaphragmatic hernia without obstruction or gangrene Status: Acute Plan I have discussed the patient's case and plan of care with Dr. Berger. Thank you for allowing us to see the patient in consultation and we will continue to follow along with you. History of Present Illness Consult details Consult date: 01/08/22 Reason for consult: other (Choledocholithiasis) Requesting physician: Romeo Mauricio MD Narrative: This is a 56-year-old male with a history of multiple myeloma on chemotherapy, who presented to [facility] yesterday with complaints of epigastric abdominal pain. He reports going to a routine follow-up at [facility] a few months ago when he had a PET scan. At that time, he was told he had a hiatal hernia that was found incidentally. They mentioned for him to look out for reflux symptoms. Shortly after, he had an episode of burning epigastric abdominal discomfort that he associated to reflux, but was concerned about his heart so he went to [facility] for evaluation. They treated him for reflux and he was given Protonix and azithromycin for an upper respiratory infection. He reports taking the medication and then switching to Prilosec and has had no further symptoms since then. He reports eating lasagna for a late lunch 3 days ago and developed epigastric abdominal pain shortly after eating. He reports this is a burning, stabbing pain that was more intense than the last episode. He denies any nausea or vomiting. The pain progressively worsened and became intolerable yesterday while at work. He then decided to go to [facility] for further evaluation. CT scan of the abdomen and pelvis showed a calcified gallstone in the distal common bile duct with intrahepatic biliary ductal dilatation and inflammation, as well as extrahepatic biliary ductal dilatation. He also had cholelithiasis. Labs showed a white blood cell count of 3700, total bilirubin 8.9, AST 407, ALT 483, and alk-phos 232. Troponin and lipase normal. EKG without any acute changes. The patient was then directly admitted to [facility] for GI and surgical evaluation. Labs this morning showed LFTs nearly u
--- NOTE | 2022-01-08 12:19 | WPDGICN ---
Assessment and Plan Assessment and plan (1) Cholelithiasis with choledocholithiasis: Code(s): K80.70 - Calculus of gallbladder and bile duct without cholecystitis without obstruction Status: Acute Assessment and Plan: I rory the anatomy for him describe the biliary system, the communication of the common bile duct with pancreatic duct, and how with ERCP we hope to be able to relieve stone material from the distal common bile duct. Explain that there is a risk of pancreatitis, the current risk being about 3% but that it could be severe, could result in prolonged hospitalization or even surgery. I told that we take steps to minimize that risk by using an indomethacin suppository. ERCP will be done tomorrow. I told that surgery would likely follow the next day. (2) Elevated LFTs: Code(s): R79.89 - Other specified abnormal findings of blood chemistry Status: Acute Assessment and Plan: I am fairly certain this is due to his choledocholithiasis. He has never had liver enzyme problems before. (3) Multiple myeloma: Code(s): C90.00 - Multiple myeloma not having achieved remission Status: Acute Assessment and Plan: Is currently under treatment for this. GI Consult Note Consult date/time: 01/08/22 12:19 HPI: Roman Hodges is a 56 year old male Who was eating on Friday when he developed pain in the sub xiphoid area. He thought this was a severe case of heartburn as he has had somewhat similar episodes in the past attributed to acid reflux. This time however the pain persisted. He finally came to the emergency room just after midnight today. He 1st went to the emergency room in [place] then was transferred here. A CT scan the abdomen shows somewhat dilated bile ducts an apparent stone in the distal common bile duct. He also has cholelithiasis. He noticed his urine was getting darker. He has no prior history of liver disease gallbladder or pancreatic disease. His bilirubin today is 7.9. AST and ALT are 397 and 417 respectively. Alkaline phosphatase is also elevated at 228. Lipase was normal. He denies recent difficulty swallowing or chronic dyspepsia nausea vomiting or weight loss though he has been very nauseated with this present illness. Review of Systems Review of Systems: All systems reviewed & are unremarkable except as noted in HPI and below PMFSH Past Medical History Medical History At risk for bleeding associated with tonsillectomy and adenoidectomy Hiatal hernia Multiple myeloma on oral chemo Pneumonia Surgical History Surgical History History of tonsillectomy Stem cells transplant status Family History Family History Father Bladder cancer Acute myocardial infarction Social History Social History Social History: he is and his is the durable power of ip attorney. 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 he smoked when he was a teen. code status: Full code Smoking status: Former smoker Tobacco type: cigarettes Alcohol intake: current Drinks per week: 1 Alcohol use details: rare Substance use: never Substance use type: does not use Spiritual care concerns: No Meds Home Medications and Allergies Home Medications Medication Instructions Recorded Confirmed Type lenalidomide 10 mg capsule 10 mg PO HS 07/04/20 01/08/22 History (Revlimid) aspirin 81 mg tablet,delayed 81 mg PO HS 01/07/22 01/08/22 History release (Adult Low Dose Aspirin) pantoprazole 40 mg tablet,delayed 40 mg PO DAILY 01/07/22 01/08/22 History release Allergies Allergy/AdvReac Type Severity Reaction Status Date / Time No Known Allergies Allergy Verified 07/12/21 23:54
[2022-01-08 13:27] VITALS: BMI 25.9
[2022-01-08 16:00] VITALS: BP 155/86; PULSE 73; RESP 18; TEMP 36.9; O2SAT 98
[2022-01-08] MEDS: ONDANSETRON INJ 4 MG/2 ML VIAL IV PUSH (17:45)
[2022-01-08 20:00] VITALS: PULSE 73; RESP 18; O2SAT 98
[2022-01-08 22:30] VITALS: BP 130/75; PULSE 60; RESP 14; TEMP 37.1; O2SAT 98
[2022-01-09] VITALS (10 sets, daily range): BP systolic 118–166; BP diastolic 64–99; PULSE 45–80; RESP 13–20; TEMP 36.4–36.6; O2SAT 98–100
[2022-01-09] MEDS: DEXTROSE 5%/0.45% SOD CHL 1,000 ML 100 ML IV CONT ×2 (00:09→16:26)
[2022-01-09 06:01] LABS: Basophils Absolute Auto 0.1 K/mm3 (0.0-0.1); Basophils Percent Auto 1.7 % (0.2-1.2); Eosinophils Absolute Auto 0.3 K/mm3 (0-0.3); Eosinophils Percent Auto 7.4 % (0-4.4); Hematocrit 39.6 % (42.0-52.0); Hemoglobin 13.1 g/dL (14.0-18.0); Immature Granulocyte Absolute 0.01 K/mm3 (0.00-0.031); Immature Granulocyte Percent A 0.3 % (0-0.5); Lymphocytes Absolute Auto 0.59 K/mm3 (0.9-3.2); Lymphocytes Percent Auto 16.8 % (18.3-44.2); Mean Corpuscular HGB Conc 33.1 g/dl (32-36); Mean Corpuscular Hemoglobin 32.6 pg (26-34); Mean Corpuscular Volume 98.5 fl (80-100); Mean Platelet Volume 9.2 fl (7.4-10.4); Monocytes Absolute Auto 1.1 K/mm3 (0.1-0.6); Monocytes Percent Auto 30.4 % (2.6-8.5); Neutrophils Absolute Auto 1.5 K/mm3 (1.3-6.7); Neutrophils Percent Auto 43.4 % (45.5-73.1); Platelet Count Result 157 k/mm3 (150-375); Red Blood Count 4.02 M/mm3 (4.6-6.20); Red Cell Distribution Width 15.4 % (11.5-14.5); White Blood Count 3.5 K/mm3 (4.5-10.0)
[2022-01-09 06:35] LABS: Alanine Aminotransferase 289 U/L (6-50); Albumin Level 3.6 g/dL (3.5-5.1); Alkaline Phosphatase 249 U/L (38-126); Anion Gap 5 mmol/L (8-16); Aspartate Amino Transferase 141 U/L (17-59); Blood Urea Nitrogen 8 mg/dL (9-20); Calcium 8.4 mg/dL (8.4-10.2); Carbon Dioxide 30 mmol/L (22-30); Chloride 102 mmol/L (98-107); Estimated CRCL calculation 62 ml/min; Estimated Glomerular Filt Rate > 60; Glucose 118 mg/dL (65-110); Potassium 4.1 mmol/L (3.4-5.0); Sodium 137 mmol/L (137-145)
--- NOTE | 2022-01-09 08:04 | PM.IMPN ---
Progress Note: A&P Assessment and Plan (1) Elevated LFTs: Code(s): R79.89 - Other specified abnormal findings of blood chemistry Status: Acute Assessment and Plan: - AST 141, ALT 289, Alk Phos 249, Tbili 7. Trending down from admission. - CT concerning for choledocholithiasis. - GI consulted and appreciate recommendations. - ERCP today and pending results. (2) Multiple myeloma: Code(s): C90.00 - Multiple myeloma not having achieved remission Status: Chronic Assessment and Plan: - Holding Revlimid while NPO. Plan CODE STATUS: FULL CODE Disposition: Home when medically stable Estimated LOS: >3 midnights. Subjective Date/time seen: 01/09/22 08:04 Interval history: Patient is a 56 yo male with medical history of multiple myeloma. He presented to the ED for evaluation of abdominal pain and found to have elevated LFTs and CT concerning for choledocholithiasis. Attempted to see patient x2 today and patient was in procedure. Nursing, vital signs, and diagnostics reviewed. No overnight events or new complaints. Patient is undergoing ERCP today. Review of Systems Review of Systems: ROS unobtainable: Yes other (Patient at procedure. ) Exam Narrative: Reviewed with nursing staff. Patient afebrile with stable vitals. AOx4. No respiratory or cardiac complaints. Objective Data Vital Signs Vital Signs: Vital Signs - 24 hr 01/08/22 16:00 01/08/22 20:00 01/08/22 22:30 Temperature 98.5 F 98.7 F Pulse Rate 73 73 60 Respiratory Rate 18 18 14 Blood Pressure 155/86 H 130/75 Pulse Oximetry 98 98 98 Oxygen Delivery Room Air 01/09/22 06:06 Temperature 97.8 F Pulse Rate 60 Respiratory Rate 16 Blood Pressure 118/64 Pulse Oximetry 98 Oxygen Delivery Intake/Output Intake/Output: Intake & Output 01/06/22 01/07/22 01/08/22 01/09/22 23:59 23:59 23:59 23:59 Intake Total 2610 300 Output Total 2000 1000 Balance 610 -700 Meds/Results Medications: Active Medications Generic Name Dose Route Start Last Admin Trade Name Freq PRN Reason Stop Dose Admin Hydralazine HCl 10 mg 01/08/22 08:15 Hydralazine Hcl 20 Mg/Ml Vial IV PUSH Q8H PRN Blood Pressure - High Hydromorphone HCl 1 mg 01/08/22 07:49 01/08/22 14:53 Hydromorphone Hcl Inj (*Crx) 1 Mg/Ml Syr IV PUSH 1 mg Q2H PRN Administration Pain Rated 7-10 Dextrose/Sodium Chloride 1,000 mls @ 100 mls/hr 01/08/22 03:10 01/09/22 00:09 Dextrose 5% Sodium Chloride 0.45% IV CONT 100 mls/hr .Q10H AMINA Administration Piperacillin/Tazobactam/Dextrose 3.375 gm in 50 mls @ 100 mls/hr 01/08/22 12:00 01/09/22 06:00 Zosyn 3.375 Gm/D5w 50ml Pm IVPB Infused Q6H AMINA Infusion Lorazepam 0.5 mg 01/08/22 08:15 Lorazepam Inj (*Crx) 2 Mg/Ml Vial IV PUSH Q6H PRN Anxiety Naloxone HCl 0.1 mg 01/08/22 03:09 Naloxone Hcl 0.4 Mg/Ml Vial IV PUSH Q2M PRN Opiate Reversal Ondansetron HCl 4 mg 01/08/22 03:09 01/08/22 17:45 Ondansetron Inj 4 Mg/2 Ml Vial IV PUSH 4 mg Q6H PRN Administration Nausea And Vomiting Labs Labs: Laboratory Results - last 24 hr 01/09/22 01/09/22 05:21 05:21 WBC 3.5 L RBC 4.02 L Hgb 13.1 L Hct 39.6 L MCV 98.5 MCH 32.6 MCHC 33.1 RDW 15.4 H Plt Count 157 MPV 9.2 Immature Gran % (Auto) 0.3 Neut % (Auto) 43.4 L Lymph % (Auto) 16.8 L [place] % (Auto) 30.4 H Eos % (Auto) 7.4 H Baso % (Auto) 1.7 H Lymph # (Auto) 0.59 L [place] # (Auto) 1.1 H Eos # (Auto) 0.3 Baso # (Auto) 0.1 Abs Immat Gran (auto) 0.01 Absolute Neuts (auto) 1.5 Absolute Nucleated RBC 0.0 Nucleated RBC % 0.0 Sodium 137 Potassium 4.1 Chloride 102 Carbon Dioxide 30 Anion Gap 5 L BUN 8 L D Creatinine 1.20 Estim Creat Clear Calc 62 Estimated GFR > 60 Glucose 118 H Calcium 8.4 Total Bilirubin 7.0 H AST 141 H ALT 289 H Alkaline Phosphatase
--- NOTE | 2022-01-09 10:39 | PM.PNGS ---
Progress Note: A&P Assessment and Plan (1) Cholelithiasis with choledocholithiasis: Code(s): K80.70 - Calculus of gallbladder and bile duct without cholecystitis without obstruction Status: Acute Assessment and Plan: Awaiting ERCP results today Will tentatively plan for laparoscopic cholecystectomy tomorrow pending MRCP results. Discussed procedure with the patient as well as typical recovery. 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 Exam GI: Inspection: normal to inspection and non-distended GI Palp: Yes Soft to palpation, No Tenderness to palpation present (GI) and No Guarding due to palpation present (GI) Percussion: Yes normal to percussion Auscultation: normal bowel sounds Objective Data Vital Signs Vital Signs: Vital Signs - 24 hr 01/08/22 16:00 01/08/22 20:00 01/08/22 22:30 Temperature 36.9 C 37.1 C Pulse Rate 73 73 60 Respiratory Rate 18 18 14 Blood Pressure 155/86 H 130/75 Pulse Oximetry 98 98 98 Oxygen Delivery Room Air 01/09/22 06:06 01/09/22 08:00 Temperature 36.6 C Pulse Rate 60 Respiratory Rate 16 Blood Pressure 118/64 Pulse Oximetry 98 Oxygen Delivery Room Air Intake/Output Intake/Output: Intake & Output 01/06/22 01/07/22 01/08/22 01/09/22 23:59 23:59 23:59 23:59 Intake Total 2610 300 Output Total 2000 1000 Balance 610 -700 Meds/Results Medications: Active Medications Generic Name Dose Route Start Last Admin Trade Name Freq PRN Reason Stop Dose Admin Hydralazine HCl 10 mg 01/08/22 08:15 Hydralazine Hcl 20 Mg/Ml Vial IV PUSH Q8H PRN Blood Pressure - High Hydromorphone HCl 1 mg 01/08/22 07:49 01/08/22 14:53 Hydromorphone Hcl Inj (*Crx) 1 Mg/Ml Syr IV PUSH 1 mg Q2H PRN Administration Pain Rated 7-10 Dextrose/Sodium Chloride 1,000 mls @ 100 mls/hr 01/08/22 03:10 01/09/22 00:09 Dextrose 5% Sodium Chloride 0.45% IV CONT 100 mls/hr .Q10H AMINA Administration Piperacillin/Tazobactam/Dextrose 3.375 gm in 50 mls @ 100 mls/hr 01/08/22 12:00 01/09/22 06:00 Zosyn 3.375 Gm/D5w 50ml Pm IVPB Infused Q6H AMINA Infusion Lorazepam 0.5 mg 01/08/22 08:15 Lorazepam Inj (*Crx) 2 Mg/Ml Vial IV PUSH Q6H PRN Anxiety Naloxone HCl 0.1 mg 01/08/22 03:09 Naloxone Hcl 0.4 Mg/Ml Vial IV PUSH Q2M PRN Opiate Reversal Ondansetron HCl 4 mg 01/08/22 03:09 01/08/22 17:45 Ondansetron Inj 4 Mg/2 Ml Vial IV PUSH 4 mg Q6H PRN Administration Nausea And Vomiting Labs Labs: Laboratory Results - last 24 hr 01/09/22 01/09/22 05:21 05:21 WBC 3.5 L RBC 4.02 L Hgb 13.1 L Hct 39.6 L MCV 98.5 MCH 32.6 MCHC 33.1 RDW 15.4 H Plt Count 157 MPV 9.2 Immature Gran % (Auto) 0.3 Neut % (Auto) 43.4 L Lymph % (Auto) 16.8 L [place] % (Auto) 30.4 H Eos % (Auto) 7.4 H Baso % (Auto) 1.7 H Lymph # (Auto) 0.59 L [place] # (Auto) 1.1 H Eos # (Auto) 0.3 Baso # (Auto) 0.1 Abs Immat Gran (auto) 0.01 Absolute Neuts (auto) 1.5 Absolute Nucleated RBC 0.0 Nucleated RBC % 0.0 Sodium 137 Potassium 4.1 Chloride 102 Carbon Dioxide 30 Anion Gap 5 L BUN 8 L D Creatinine 1.20 Estim Creat Clear Calc 62 Estimated GFR > 60 Glucose 118 H Calcium 8.4 Total Bilirubin 7.0 H AST 141 H ALT 289 H Alkaline Phosphatase 249 H Total Protein 7.0 Albumin 3.6 Quality VTE Prophylaxis VTE prophylaxis: pharmacologic ordered
--- NOTE | 2022-01-09 12:09 | WPDANESEPPF ---
Anes - Initial Pre Proc Eval Procedure: Operation Date: 01/09/22 12:30 Proposed Procedures p Endoscopic Retro Cholangiopancreatogram - Drake Roman MD Operation Date: 01/10/22 12:00 Proposed Procedures p Laparoscopic Cholecystectomy; Possible Open - Robles Berger DO Date/Time: 01/09/22 12:09 Surgeon: Priti Wheeler NP Pre Op Diagnosis: choledocholithiesis Patient Data Age: 56 Gender: M Height: 1.78 m Weight: 81.8 kg Last Vital Signs Temp 97.8 F 01/09/22 06:06 Pulse 60 01/09/22 06:06 Resp 16 01/09/22 06:06 BP 118/64 01/09/22 06:06 Pulse Ox 98 01/09/22 06:06 O2 Del Method Room Air 01/09/22 08:00 Allergies Allergy/AdvReac Type Severity Reaction Status Date / Time No Known Allergies Allergy Verified 01/09/22 12:05 Home Medications Medication Instructions Recorded Confirmed Type lenalidomide 10 mg capsule 10 mg PO HS 07/04/20 01/08/22 History (Revlimid) aspirin 81 mg tablet,delayed 81 mg PO HS 01/07/22 01/08/22 History release (Adult Low Dose Aspirin) pantoprazole 40 mg tablet,delayed 40 mg PO DAILY 01/07/22 01/08/22 History release Laboratory Tests 01/09/22 01/09/22 05:21 05:21 WBC 3.5 K/mm3 L K/mm3 (4.5-10.0) RBC 4.02 M/mm3 L M/mm3 (4.6-6.20) Hgb 13.1 g/dL L g/dL (14.0-18.0) Hct 39.6 % L % (42.0-52.0) MCV 98.5 fl fl (80-100) MCH 32.6 pg pg (26-34) MCHC 33.1 g/dl g/dl (32-36) RDW 15.4 % H % (11.5-14.5) Plt Count 157 k/mm3 k/mm3 (150-375) MPV 9.2 fl fl (7.4-10.4) Immature Gran % (Auto) 0.3 % % (0-0.5) Neut % (Auto) 43.4 % L % (45.5-73.1) Lymph % (Auto) 16.8 % L % (18.3-44.2) [place] % (Auto) 30.4 % H % (2.6-8.5) Eos % (Auto) 7.4 % H % (0-4.4) Baso % (Auto) 1.7 % H % (0.2-1.2) Lymph # (Auto) 0.59 K/mm3 L K/mm3 (0.9-3.2) [place] # (Auto) 1.1 K/mm3 H K/mm3 (0.1-0.6) Eos # (Auto) 0.3 K/mm3 K/mm3 (0-0.3) Baso # (Auto) 0.1 K/mm3 K/mm3 (0.0-0.1) Abs Immat Gran (auto) 0.01 K/mm3 K/mm3 (0.00-0.031) Absolute Neuts (auto) 1.5 K/mm3 K/mm3 (1.3-6.7) Absolute Nucleated RBC 0.0 K/mm3 K/mm3 (0.0-0.012) Nucleated RBC % 0.0 % % (0.0-0.2) Sodium 137 mmol/L mmol/L (137-145) Potassium 4.1 mmol/L mmol/L (3.4-5.0) Chloride 102 mmol/L mmol/L (98-107) Carbon Dioxide 30 mmol/L mmol/L (22-30) Anion Gap 5 mmol/L L mmol/L (8-16) BUN 8 mg/dL L D mg/dL (9-20) Creatinine 1.20 mg/dL mg/dL (0.7-1.3) Estim Creat Clear Calc 62 ml/min ml/min Estimated GFR > 60 (59 - ) Glucose 118 mg/dL H mg/dL (65-110) Calcium 8.4 mg/dL mg/dL (8.4-10.2) Total Bilirubin 7.0 mg/dL H mg/dL (0.2-1.3) AST 141 U/L H U/L (17-59) ALT 289 U/L H U/L (6-50) Alkaline Phosphatase 249 U/L H U/L (38-126) Total Protein 7.0 g/dL g/dL (6.3-8.2) Albumin 3.6 g/dL g/dL (3.5-5.1) Patient hx anesthesia problems: none Family hx anesthesia problems: none Results Review: All pre-operative results and documents have been reviewed as part of the pre-operative evaluation. [facility] Past Medical History Medical History At risk for bleeding associated with tonsillectomy and adenoidectomy Hiatal hernia Multiple myeloma on oral chemo Pneumonia Surgical History Surgical History History of tonsillectomy Stem cells transplant status Family History Family History Father Bladder cancer Acute myocardial infarction Social History Social History Social History: he is and his is the durable power of deputy prosecuting attorney. 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
[2022-01-09] MEDS: LACTATED RINGERS 1,000 ML 150 ML IV CONT ×2 (12:12→14:13)
[2022-01-09] MEDS: INDOMETHACIN 50 MG SUPP.RECT 100 MG RECTAL (13:55)
--- NOTE | 2022-01-09 15:06 | SUR.OPER ---
Report given to Jenna ROGEL on 2 medical.
[2022-01-10] VITALS (14 sets, daily range): BP systolic 133–186; BP diastolic 69–98; PULSE 47–94; RESP 12–17; TEMP 36.2–37.2; O2SAT 98–100
[2022-01-10] MEDS: DEXTROSE 5%/0.45% SOD CHL 1,000 ML 100 ML IV CONT (02:40)
[2022-01-10 05:24] LABS: Hematocrit 39.4 % (42.0-52.0); Mean Corpuscular Hemoglobin 32.5 pg (26-34); Mean Corpuscular Volume 98.5 fl (80-100); Mean Platelet Volume 9.6 fl (7.4-10.4); Platelet Count Result 167 k/mm3 (150-375); Red Cell Distribution Width 15.1 % (11.5-14.5)
[2022-01-10 05:38] LABS: Alanine Aminotransferase 243 U/L (6-50); Albumin Level 3.6 g/dL (3.5-5.1); Alkaline Phosphatase 247 U/L (38-126); Anion Gap 3 mmol/L (8-16); Aspartate Amino Transferase 149 U/L (17-59); Bilirubin,Total 4.7 mg/dL (0.2-1.3); Blood Urea Nitrogen 13 mg/dL (9-20); Calcium 8.1 mg/dL (8.4-10.2); Carbon Dioxide 28 mmol/L (22-30); Chloride 104 mmol/L (98-107); Estimated CRCL calculation 67 ml/min; Estimated Glomerular Filt Rate > 60; Glucose 123 mg/dL (65-110); Potassium 4.2 mmol/L (3.4-5.0); Sodium 135 mmol/L (137-145)
--- NOTE | 2022-01-10 07:16 | WPDGIPROGNO ---
Progress Note: A&P Assessment and Plan (1) Cholelithiasis with choledocholithiasis: Code(s): K80.70 - Calculus of gallbladder and bile duct without cholecystitis without obstruction Status: Acute Assessment and Plan: I rory the anatomy for him describe the biliary system, the communication of the common bile duct with pancreatic duct, and how with ERCP we hope to be able to relieve stone material from the distal common bile duct. Explain that there is a risk of pancreatitis, the current risk being about 3% but that it could be severe, could result in prolonged hospitalization or even surgery. I told that we take steps to minimize that risk by using an indomethacin suppository. ERCP will be done tomorrow. I told that surgery would likely follow the next day. 01/10/2022 he is having cholecystectomy today. Assuming there is still a stone in the duct will then arrange for him to see a biliary specialist in [place] for ERCP. (2) Elevated LFTs: Code(s): R79.89 - Other specified abnormal findings of blood chemistry Status: Acute Assessment and Plan: I am fairly certain this is due to his choledocholithiasis. He has never had liver enzyme problems before. 01/10/2022 bilirubin has come down from 8.9-4.7. (3) Multiple myeloma: Code(s): C90.00 - Multiple myeloma not having achieved remission Status: Chronic Assessment and Plan: Is currently under treatment for this. Subjective Date/time seen: 01/10/22 07:16 he is pain free this morning. He is scheduled for cholecystectomy today. I discussed with him the fact that we were not able to remove the stone from his distal common bile duct, Due to inability to cannulate the ampulla which was somewhat stenotic. His bilirubin has decreased today. Possibly he had passed a stone. I discussed his case with Dr. Berger who stated that he will attempt to perform a cholangiogram intraoperatively. If a stone is still present, then I will arrange for him to see Dr. Shen in [place] for ERCP Exam Const: General: alert Orientation/consciousness: patient oriented x3 Eyes: Sclera: scleral abnormality ( Icterus) Resp: Auscultation: clear to auscultation bilaterally Cardio: Rhythm: regular rhythm Neuro: General: patient oriented x3 Objective Data Vital Signs Vital Signs: Vital Signs - 24 hr 01/09/22 08:00 01/09/22 12:09 01/09/22 15:05 Temperature 36.6 C 36.4 C L Pulse Rate 57 L 80 Respiratory Rate 20 20 Blood Pressure 136/83 141/99 H Pulse Oximetry 100 100 Oxygen Delivery Room Air Room Air Room Air 01/09/22 15:15 01/09/22 15:25 01/09/22 15:35 Temperature Pulse Rate 65 57 L 56 L Respiratory Rate 17 19 15 Blood Pressure 142/92 H 148/94 H 149/92 H Pulse Oximetry 100 100 99 Oxygen Delivery Room Air Room Air Room Air 01/09/22 15:45 01/09/22 15:55 01/09/22 17:17 Temperature 36.5 C Pulse Rate 50 L 45 L 50 L Respiratory Rate 17 13 18 Blood Pressure 161/91 H 164/85 H 166/82 H Pulse Oximetry 100 100 100 Oxygen Delivery Room Air Room Air 01/09/22 21:52 01/10/22 05:04 Temperature 36.5 C 36.8 C Pulse Rate 54 L 53 L Respiratory Rate 14 14 Blood Pressure 146/82 H 133/69 Pulse Oximetry 100 100 Oxygen Delivery Intake/Output Intake/Output: Intake & Output 01/07/22 01/08/22 01/09/22 01/10/22 23:59 23:59 23:59 23:59 Intake Total 2610 1600 1100 Output Total 2000 1500 200 Balance 610 100 900 Meds/Results Medications: Active Medications Generic Name Dose Route Start Last Admin Trade Name Freq PRN Reason Stop Dose Admin Hydralazine HCl 10 mg 01/08/22 08:15 Hydralazine Hcl 20 Mg/Ml Vial IV PUSH Q8H PRN Blood Pressure - High Hydromorphone HCl 1 mg 01/08/22 07:49 01/08/22 14:53 Hydromorphone Hcl Inj (*Crx) 1 Mg/Ml Syr IV PUSH 1 mg Q2H PRN Administration Pain Rated 7-10 Dextrose/Sodium Chloride 1,000 mls @ 100 mls/hr 01/08/22 03:10 01/10
--- NOTE | 2022-01-10 08:54 | PM.IMPN ---
Progress Note: A&P Assessment and Plan (1) Elevated LFTs: Code(s): R79.89 - Other specified abnormal findings of blood chemistry Status: Acute Assessment and Plan: - AST 149, ALT 243, Alk Phos 247, Tbili 4.7. Tbili improved from yesterday, but otherwise LFTs unchanged. - CT concerning for choledocholithiasis. - GI consulted and appreciate recommendations. 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 - General surgery consulted and plan for cholecystectomy today. (2) Multiple myeloma: Qualifiers: Multiple myeloma remission status: unspecified Qualified Code(s): C90.00 - Multiple myeloma not having achieved remission Code(s): C90.00 - Multiple myeloma not having achieved remission Status: Chronic Assessment and Plan: - Holding Revlimid while NPO. Plan CODE STATUS: FULL CODE Disposition: Home when medically stable Time Spent With Patient Time with patient: 15 - 25 minutes Subjective Date/time seen: 01/10/22 08:54 Interval history: Patient is a 56 yo male with medical history of multiple myeloma. He presented to the ED for evaluation of abdominal pain and found to have elevated LFTs and CT concerning for choledocholithiasis. Patient found sitting up in the bed. He denies complaints or overnight events. He states that his ERCP was not successful yesterday. No chest pain, SOB, abd pain, N/V/D or dizziness. He is awaiting word on surgery today, but was told it might be at noon. Review of Systems Review of Systems: All systems reviewed & are unremarkable except as noted in HPI and below Exam Narrative: General: No acute distress.?Well-developed adult male sitting up in bed. No oxygen. Mental Status/Psych: Awake, alert and oriented to person and place with clear speech. Neutral mood and affect. Pleasant and cooperative. Skin: Skin fair, warm, dry and intact without rashes or lesions. No open wounds. Fair turgor.?Mild jaundice. HEENT: Normocephalic. Conjunctivae are clear. Sclera mildly icteric. Pupils equal and round. Grossly normal hearing. Oral mucosa pink and moist. Neck: Supple. No JVD. Heart: S1 and S2 regular rate and rhythm. No murmurs, gallops, or rubs auscultated. Chest: Respirations even and unlabored. Lung sounds are clear to auscultation in all lobes bilaterally without wheezes, rhonchi, or rales. Abdomen: Soft, round and nontender to palpation..? Bowel sounds present in all 4 quadrants. No guarding or grimacing. No suprapubic tenderness. : Dark, karon urine. Extremities:? Grossly normal ROM all extremities. No edema. Radial and dorsalis pedis pulses +2 bilaterally. Neurological: No focal deficits. Objective Data Vital Signs Vital Signs: Vital Signs - 24 hr 01/09/22 12:09 01/09/22 15:05 01/09/22 15:15 Temperature 97.9 F 97.5 F L Pulse Rate 57 L 80 65 Respiratory Rate 20 20 17 Blood Pressure 136/83 141/99 H 142/92 H Pulse Oximetry 100 100 100 Oxygen Delivery Room Air Room Air Room Air 01/09/22 15:25 01/09/22 15:35 01/09/22 15:45 Temperature Pulse Rate 57 L 56 L 50 L Respiratory Rate 19 15 17 Blood Pressure 148/94 H 149/92 H 161/91 H Pulse Oximetry 100 99 100 Oxygen Delivery Room Air Room Air Room Air 01/09/22 15:55 01/09/22 17:17 01/09/22 21:52 Temperature 97.7 F 97.7 F Pulse Rate 45 L 50 L 54 L Respiratory Rate 13 18 14 Blood Pressure 164/85 H 166/82 H 146/82 H Pulse Oximetry 100 100 100 Oxygen Delivery Room Air 01/10/22 05:04 Temperature 98.2 F Pulse Rate 53 L Respiratory Rate 14 Blood Pressure 133/69 Pulse Oximetry 100 Oxygen Delivery Intake/Output Intake/Output: Intake & Output 01/07/22 01/08/22 01/09/22 01/10/22 23:59 23:59 23:59 23:59 Intake Total 2610 1600 1150 Output Total 2000 1500 200 Balance 610 100 950 Meds/Results Medications: Active Medications Generic Name Dose Route Start Last Admin Trade Name Freq PRN Reason Stop Dose Admin
[2022-01-10] MEDS: LACTATED RINGERS 1,000 ML 30 ML IV CONT ×2 (11:00→12:46)
--- NOTE | 2022-01-10 11:17 | WPDHPUPDATE1 ---
History and Physical Update Update Date/Time: 01/10/22 11:17 History and Physical has been reviewed, including an updated exam of the patient. There are NO changes in the patient's condition. Since ERCP was unsuccessful yesterday, will proceed with laparoscopic cholecystectomy with IOC, poss open. Risks, benefits, and alternatives have been discussed and questions answered. Patient agrees to proceed with procedure.
--- NOTE | 2022-01-10 11:25 | WPDANESEPPF ---
Anes - Initial Pre Proc Eval Procedure: Operation Date: 01/09/22 12:30 Proposed Procedures p Endoscopic Retro Cholangiopancreatogram - Drake Roman MD Operation Date: 01/10/22 11:30 Proposed Procedures p Laparoscopic Cholecystectomy, Possible Open, Possible Intra Operative Cholangiogram - Robles Berger DO Date/Time: 01/10/22 11:25 Surgeon: Priti Wheeler NP Pre Op Diagnosis: choledocholithiesis Patient Data Age: 56 Gender: M Height: 1.78 m Weight: 81.8 kg Last Vital Signs Temp 36.8 C 01/10/22 05:04 Pulse 53 L 01/10/22 05:04 Resp 14 01/10/22 05:04 BP 133/69 01/10/22 05:04 Pulse Ox 100 01/10/22 05:04 O2 Del Method Room Air 01/10/22 08:00 Allergies Allergy/AdvReac Type Severity Reaction Status Date / Time No Known Allergies Allergy Verified 01/09/22 12:05 Home Medications Medication Instructions Recorded Confirmed Type lenalidomide 10 mg capsule 10 mg PO HS 07/04/20 01/08/22 History (Revlimid) aspirin 81 mg tablet,delayed 81 mg PO HS 01/07/22 01/08/22 History release (Adult Low Dose Aspirin) pantoprazole 40 mg tablet,delayed 40 mg PO DAILY 01/07/22 01/08/22 History release Laboratory Tests 01/10/22 01/10/22 01/10/22 04:59 04:59 04:59 WBC 4.0 K/mm3 L K/mm3 (4.5-10.0) RBC 4.00 M/mm3 L M/mm3 (4.6-6.20) Hgb 13.0 g/dL L g/dL (14.0-18.0) Hct 39.4 % L % (42.0-52.0) MCV 98.5 fl fl (80-100) MCH 32.5 pg pg (26-34) MCHC 33.0 g/dl g/dl (32-36) RDW 15.1 % H % (11.5-14.5) Plt Count 167 k/mm3 k/mm3 (150-375) MPV 9.6 fl fl (7.4-10.4) Sodium 135 mmol/L L mmol/L (137-145) Potassium 4.2 mmol/L mmol/L (3.4-5.0) Chloride 104 mmol/L mmol/L (98-107) Carbon Dioxide 28 mmol/L mmol/L (22-30) Anion Gap 3 mmol/L L mmol/L (8-16) BUN 13 mg/dL D mg/dL (9-20) Creatinine 1.10 mg/dL mg/dL (0.7-1.3) Estim Creat Clear Calc 67 ml/min ml/min Estimated GFR > 60 (59 - ) Glucose 123 mg/dL H mg/dL (65-110) Calcium 8.1 mg/dL L mg/dL (8.4-10.2) Total Bilirubin 4.7 mg/dL H mg/dL (0.2-1.3) AST 149 U/L H U/L (17-59) ALT 243 U/L H U/L (6-50) Alkaline Phosphatase 247 U/L H U/L (38-126) Total Protein 7.0 g/dL g/dL (6.3-8.2) Albumin 3.6 g/dL g/dL (3.5-5.1) Blood Type O Positive Antibody Screen Negative Patient hx anesthesia problems: none Family hx anesthesia problems: none Results Review: All pre-operative results and documents have been reviewed as part of the pre-operative evaluation. [facility] Past Medical History Medical History At risk for bleeding associated with tonsillectomy and adenoidectomy Hiatal hernia Multiple myeloma on oral chemo Pneumonia Surgical History Surgical History History of tonsillectomy Stem cells transplant status Family History Family History Father Bladder cancer Acute myocardial infarction Social History Social History Social History: he is and his is the durable power of state's attorney. 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 he smoked when he was a teen. code status: Full code Smoking status: Former smoker Tobacco type: cigarettes Alcohol intake: current Drinks per week: 1 Alcohol use details: rare Substance use: never Substance use type: does not use Spiritual care concerns: No Anes - Eval Final PreProcedure Day of Procedure 01/10/22 11:25 Patient weight: normal Heart: regular rate and rhythm
[2022-01-10] MEDS: BUPIVACAINE/EPINEPHRINE 0.25% 50 ML VIAL INFILTRATE (12:19)
--- NOTE | 2022-01-10 12:44 | W.PM.PROC2 ---
Procedure Note - Detailed Date of Procedure 01/10/22 Pre-op Diagnosis choledocholithiasis with cholelithiasis, elevated liver enzymes Post-op Diagnosis Same Procedure Performed Laparoscopic Cholecystectomy with Intraoperative Cholangiogram Surgeon Robles Berger, DO Anesthesia General and Local (0.5% bupivacaine) Indications This is a 56-year-old man who presented with epigastric abdominal pain for the past several days. He was evaluated at [facility] and was transferred to [facility] for further treatment. Imaging included a CT abdomen/pelvis which showed evidence of cholelithiasis and choledocholithiasis. He was found to have a significantly elevated total bilirubin. ERCP was attempted on 01/09/2022 but was unsuccessful at cannulating the ampulla. Transferring patient to another facility was likely going to take several days, therefore GI recommended proceeding with laparoscopic cholecystectomy with cholangiogram in the meantime. I discussed the procedure with the patient and decision was made to proceed with laparoscopic cholecystectomy with intraoperative cholangiogram, possible open. Findings Laparoscopic cholecystectomy was performed. The gallbladder had some chronic wall thickening and fatty infiltration around the wall. The cystic duct appeared mildly dilated but no cystic duct stones were palpable. Intraoperative cholangiogram was obtained using Omnipaque contrast. I reviewed the images intraoperatively and there did not appear to be any filling defect within the common bile duct and contrast was visualized entering into the duodenum. The images were also sent to the radiologist for interpretation. There were several stones within the gallbladder. The gallbladder was removed and sent to the lab for pathology. Description of Procedure Procedure as well as risks, benefits, and alternatives were discussed with patient. Written consent was obtained and placed in chart prior to procedure. The patient was brought back to surgical suite. Patient was placed in supine position on operating table. Time-out was done to confirm patient and procedure. Patient was then intubated by the anesthesia department. Abdomen was prepped and draped in sterile fashion using chlorhexidine prep. 0.5% bupivacaine with epinephrine was infiltrated at each site of incision. A 5 millimeter incision was made near the umbilicus, and a 5 millimeter Optiview trocar was advanced through the abdominal layers under direct visualization. Once inside the abdominal cavity, carbon dioxide was insufflated to create a pneumoperitoneum. The camera was inserted and the abdomen was inspected. No immediate abnormalities were identified. The patient was placed in reverse Trendelenburg position and rotated slightly to the left. An 11 millimeter incision was made in the subxiphoid region, and an 11 millimeter trocar was inserted under direct visualization. Two 5 millimeter incisions were made in the right upper quadrant, and two 5 millimeter trocars were inserted under direct visualization. The gallbladder was identified and grasped at the fundus and retracted superiorly. It was then grasped at the infundibulum retracted laterally. Careful dissection around the neck of the gallbladder was performed using blunt dissection with a [place] grasper and hook electrocautery. The cystic duct was identified, and a window was created behind it. The cystic artery was also identified and a window was created behind it. The critical view of safety was identified, visualizing the cystic duct running directly into the neck of the gallbladder, and the cystic artery running directly into the wall of the gallbladder. A 5 millimeter clip stamps or coins salesperson was then used to place 2 clips proximally and 1 clip distally on the cystic artery. It was then transected using endoscopic scissors. The Gonzalez clamp was then placed across the neck of the gallbladder and the cholangiocatheter was a
[2022-01-10] MEDS: fentaNYL CITRATE INJ (*CRX) 100 MCG/2 ML VIAL 25 MCG IV PUSH (13:16)
[2022-01-10] MEDS: HYDROcodone/acetaminophen (*CRX) 5-325 MG TABLET 1 TAB PO ×2 (14:51→19:45)
[2022-01-10] MEDS: LACTATED RINGERS 1,000 ML 100 ML IV CONT (14:51)
[2022-01-10] MEDS: hydrALAZINE HCL 20 MG/ML VIAL 10 MG IV PUSH (16:51)
[2022-01-10] MEDS: IBUPROFEN 600 MG TABLET PO (23:23)
[2022-01-11 03:37] VITALS: BP 150/76; PULSE 59; RESP 18; TEMP 36.6; O2SAT 99
[2022-01-11 05:34] LABS: Hematocrit 38.1 % (42.0-52.0); Hemoglobin 12.4 g/dL (14.0-18.0); Mean Corpuscular HGB Conc 32.5 g/dl (32-36); Mean Corpuscular Hemoglobin 32.2 pg (26-34); Mean Platelet Volume 9.6 fl (7.4-10.4); Platelet Count Result 197 k/mm3 (150-375); Red Blood Count 3.85 M/mm3 (4.6-6.20); Red Cell Distribution Width 15.5 % (11.5-14.5); White Blood Count 5.7 K/mm3 (4.5-10.0)
[2022-01-11] MEDS: IBUPROFEN 600 MG TABLET PO (05:37)
[2022-01-11 05:49] LABS: Alanine Aminotransferase 230 U/L (6-50); Albumin Level 3.4 g/dL (3.5-5.1); Alkaline Phosphatase 219 U/L (38-126); Anion Gap 6 mmol/L (8-16); Aspartate Amino Transferase 117 U/L (17-59); Bilirubin,Total 2.9 mg/dL (0.2-1.3); Blood Urea Nitrogen 13 mg/dL (9-20); Calcium 8.6 mg/dL (8.4-10.2); Carbon Dioxide 26 mmol/L (22-30); Chloride 106 mmol/L (98-107); Estimated CRCL calculation 67 ml/min; Estimated Glomerular Filt Rate > 60; Glucose 100 mg/dL (65-110); Potassium 3.8 mmol/L (3.4-5.0); Sodium 138 mmol/L (137-145)
--- NOTE | 2022-01-11 06:46 | WPDANESPN ---
Anes - Prog Note Post-Op Date/Time: 01/11/22 06:46 Cardiovascular status: normal Respiratory status: normal Airway patency: baseline Mental status: baseline Post-Op hydration status: normal Vital Signs: Last Vital Signs Temp 36.6 C 01/11/22 03:37 Pulse 59 L 01/11/22 03:37 Resp 18 01/11/22 03:37 BP 150/76 H 01/11/22 03:37 Pulse Ox 99 01/11/22 03:37 O2 Del Method Room Air 01/10/22 20:00 O2 Flow Rate 8 01/10/22 12:55 Pain Score (VAS): 0 I/O: Intake & Output 01/10/22 01/10/22 01/11/22 15:59 23:59 07:59 Intake Total 2370 930 450 Output Total 200 300 Balance 2170 630 450 Laboratory Tests 01/11/22 04:52 01/11/22 04:52 01/10/22 01/11/22 01/11/22 04:59 04:52 04:52 WBC 5.7 RBC 3.85 L Hgb 12.4 L Hct 38.1 L MCV 99.0 MCH 32.2 MCHC 32.5 RDW 15.5 H Plt Count 197 MPV 9.6 Sodium 138 Potassium 3.8 Chloride 106 Carbon Dioxide 26 Anion Gap 6 L BUN 13 Creatinine 1.10 Estim Creat Clear Calc 67 Estimated GFR > 60 Glucose 100 Calcium 8.6 Total Bilirubin 2.9 H AST 117 H ALT 230 H Alkaline Phosphatase 219 H Total Protein 7.0 Albumin 3.4 L Blood Type O Positive Antibody Screen Negative Post-procedural complaints: none Patient Feedback: Patient satisfied with anesthetic care.
--- NOTE | 2022-01-11 07:21 | WPDGIPROGNO ---
Progress Note: A&P Assessment and Plan (1) Cholelithiasis with choledocholithiasis: Code(s): K80.70 - Calculus of gallbladder and bile duct without cholecystitis without obstruction Status: Acute Assessment and Plan: I rory the anatomy for him describe the biliary system, the communication of the common bile duct with pancreatic duct, and how with ERCP we hope to be able to relieve stone material from the distal common bile duct. Explain that there is a risk of pancreatitis, the current risk being about 3% but that it could be severe, could result in prolonged hospitalization or even surgery. I told that we take steps to minimize that risk by using an indomethacin suppository. ERCP will be done tomorrow. I told that surgery would likely follow the next day. 01/10/2022 he is having cholecystectomy today. Assuming there is still a stone in the duct will then arrange for him to see a biliary specialist in [place] for ERCP. 01/11/2022 cholangiogram showed that there is no longer stone present in the common bile duct. Consequently, an ERCP should not be necessary. His bilirubin continues to decrease. (2) Elevated LFTs: Code(s): R79.89 - Other specified abnormal findings of blood chemistry Status: Acute Assessment and Plan: I am fairly certain this is due to his choledocholithiasis. He has never had liver enzyme problems before. 01/10/2022 bilirubin has come down from 8.9-4.7. 01/11/2022 bilirubin now down to 2.9 (3) Multiple myeloma: Qualifiers: Multiple myeloma remission status: unspecified Qualified Code(s): C90.00 - Multiple myeloma not having achieved remission Code(s): C90.00 - Multiple myeloma not having achieved remission Status: Chronic Assessment and Plan: Is currently under treatment for this. Subjective Date/time seen: 01/11/22 07:21 He feels good today. His urine has returned to normal color. Cholangiogram done at the time of surgery revealed no filling defects or obstruction in the distal common bile duct, indicating that the stone had passed. He is tolerating his diet and is anticipating going home today. Told that we would want to recheck his liver enzymes in a week or 2. He states that Dr. Berger will be seeing him in a couple weeks. Exam Const: General: alert Orientation/consciousness: patient oriented x3 Eyes: Sclera: sclerae normal Resp: Auscultation: clear to auscultation bilaterally Cardio: Rhythm: regular rhythm GI: Inspection: normal to inspection GI Palp: Yes abdominal tenderness ( Minimal tenderness since surgery) Auscultation: normal bowel sounds Neuro: General: patient oriented x3 Objective Data Vital Signs Vital Signs: Vital Signs - 24 hr 01/10/22 08:00 01/10/22 11:30 01/10/22 12:46 Temperature 37.2 C 36.2 C L Pulse Rate 48 L 94 Respiratory Rate 16 13 Blood Pressure 147/77 H 186/98 H Pulse Oximetry 100 100 Oxygen Delivery Room Air Simple Face Mask Oxygen Flow Rate 8 01/10/22 12:55 01/10/22 13:05 01/10/22 13:20 Temperature Pulse Rate 75 68 56 L Respiratory Rate 15 15 12 Blood Pressure 169/91 H 163/86 H 167/92 H Pulse Oximetry 100 100 99 Oxygen Delivery Simple Face Mask Room Air Room Air Oxygen Flow Rate 8 01/10/22 13:30 01/10/22 13:40 01/10/22 14:25 Temperature 36.4 C 36.4 C Pulse Rate 52 L 54 L 47 L Respiratory Rate 12 16 15 Blood Pressure 177/95 H 163/85 H 138/80 Pulse Oximetry 99 100 99 Oxygen Delivery Room Air Room Air Oxygen Flow Rate 01/10/22 14:40 01/10/22 15:05 01/10/22 16:05 Temperature 36.4 C 36.6 C 36.4 C Pulse Rate 49 L 51 L 51 L Respiratory Rate 16 16 16 Blood Pressure 174/83 H 172/84 H 182/94 H Pulse Oximetry 98 100 100 Oxygen Delivery Oxygen Flow Rate 01/10/22 19:32 01/10/22 20:00 01/10/22 23:36 Temperature 36.4 C 36.2 C L Pulse Rate 54 L 58 L Respiratory Rate 17 16 Blood Pressure 136/75 147/81 H Pulse Oximetry 1
--- NOTE | 2022-01-11 07:36 | PM.DS ---
DS: Admitting Diagnosis Discharge Date 01/11/2022 0855 Admitting Diagnosis Choledocholithiasis DS: Discharge Diagnosis Discharge Diagnosis (1) Cholelithiasis with choledocholithiasis: Code(s): K80.70 - Calculus of gallbladder and bile duct without cholecystitis without obstruction Status: Acute Assessment and Plan: Noted on CT scan upon admission. - LFTs were elevated on admission. Lactic acid and lipase were normal. - He was empirically treated with Zosyn 3.375 mg IV q 6 hours from 01/08 to 01/11, when they were discontinued following surgery. He was afebrile without leukocytosis or bandemia - He was treated with bowel rest, IV pain medications and IV fluids as well. - GI was consulted and patient underwent ERCP on 01/09/22, however, papillary stenosis was noted and cannulation attempt failed. - General surgery was also consulted upon admission and patient was taken for laparoscopic cholecystectomy on 01/10/22. His gallbladder was found to have some chronic wall thickening and fatty infiltration around the wall.? The cystic duct appeared mildly dilated but no cystic duct stones were palpable.? Intraoperative cholangiogram was obtained using Omnipaque contrast and the OR report noted there did not appear to be any filling defect within the common bile duct and contrast was visualized entering into the duodenum.? The images were also sent to the radiologist for interpretation.? There were several stones within the gallbladder.? The gallbladder was removed and sent to the lab for pathology. LFTs improved postop. Diet was advanced to low fat, which he tolerated well. Pain was controlled with PO acetaminophen, PO ibuprofen and PO norco PRN. - He was discharged home with follow up with Dr. Betts in 10-14 days. Postop discharge instructions were reviewed by nursing at discharge. (2) Elevated LFTs: Code(s): R79.89 - Other specified abnormal findings of blood chemistry Status: Acute Assessment and Plan: The patient was noted to have elevated LFTs upon admission thought to be secondary to choledocholithiasis. On admission, AST 407, ALT 438, Alk phos 232 and Tbili 8.3. He had no prior history of transaminitis. - management for choledocholithiasis is as above. - LFTs were monitored and trending down following surgery. - At discharge, AST 117, ALT 230, Alk phos 219, and Tbili 2.9. (3) Multiple myeloma: Qualifiers: Multiple myeloma remission status: unspecified Qualified Code(s): C90.00 - Multiple myeloma not having achieved remission Code(s): C90.00 - Multiple myeloma not having achieved remission Status: Chronic Assessment and Plan: - Revlimid was held while NPO, but was resumed upon discharge. (4) Elevated blood pressure reading without diagnosis of hypertension: Code(s): R03.0 - Elevated blood-pressure reading, without diagnosis of hypertension Status: Acute Assessment and Plan: Patient had postoperative hypertension BP 170-180s/80-90s. This was likely secondary to pain and improved prior to discharge. His BP at discharge, however, was noted to be 156/78. He was counseled to monitor this over the next 1-2 weeks at home and follow-up with his PCP outpatient. DS: Summary Hospital Course Reason for hospitalization: Choledocholithiasis Hospital Course: Roman Hodges is a 56 yr old male with medical history of multiple myeloma, on Remlivid. He presented to [facility] for evaluation of upset stomach starting 2 weeks prior to admission. He was told that he has a hiatal hernia. He stated that he recently had a pet scan. and had been taking prilosec, which seemed to help. The Friday before admission, he ate some lasagna and that upset his stomach. He took the prilosec, which did not help. At [facility], his CT scan was concerning for choledocholithiasis. He was also noted to have elevated liver enzymes and jaundice. He has sever
[2022-01-11 08:06] VITALS: BP 156/78; PULSE 69; RESP 18; TEMP 36.6; O2SAT 98
--- NOTE | 2022-01-11 09:15 | PC.NURSE ---
Patient, Roman Hodges, was discharged before AM physical assessments could be completed. IV was removed, and patient was given discharge instructions.
== END 2022-01-11 09:00 | disposition home or self-care (01) ==
PROVIDERS: Internal Medicine Gastroenterology; Nurse Practitioner; Surgery; Admitting Provider Internal Medicine; Visit Provider Nurse Practitioner Family
PROC: (CPT 43260; principal; 2022-01-09 12:30)
PROC: 0FT44ZZ Resection of Gallbladder, Percutaneous Endoscopic Approach (ICD-10-PCS; CPT 47562; principal; 2022-01-10 11:30)
DX: K80.70 Calculus of gallbladder and bile duct without cholecystitis without obstruction (principal); K80.65 Calculus of gallbladder and bile duct with chronic cholecystitis with obstruction; R79.89 Other specified abnormal findings of blood chemistry; C90.00 Multiple myeloma not having achieved remission; R03.0 Elevated blood-pressure reading, without diagnosis of hypertension; K44.9 Diaphragmatic hernia without obstruction or gangrene; K40.20 Bilateral inguinal hernia, without obstruction or gangrene, not specified as recurrent; Z80.52 Family history of malignant neoplasm of bladder; Z94.84 Stem cells transplant status; Z87.891 Personal history of nicotine dependence; Z72.89 Other problems related to lifestyle; Z79.52 Long term (current) use of systemic steroids; Z79.899 Other long term (current) drug therapy
CPT/HCPCS: 47563; 43277; 36415; 74300; 74329; 80053; 85025; 85027; 85610; 85730; 86850; 86900; 86901; 88304; A9270; G0378; J0330; J0360; J1100; J1170; J2250; J2270; J2370; J2405; J2543; J2704; J2710; J3010; J7030; J7120; Q9966

== ENCOUNTER 2022-01-19 11:13 | Outpatient (CLI) | payer BC, SELFPAY ==
[2022-01-19 11:43] LABS: Alanine Aminotransferase 75 U/L (16-63); Albumin Level 3.7 g/dL (3.4-5.0); Alkaline Phosphatase 137 U/L (46-116); Anion Gap 5 mmol/L (8-16); Aspartate Amino Transferase 31 U/L (15-37); Bilirubin,Total 0.9 mg/dL (0.00-1.00); Blood Urea Nitrogen 27 mg/dL (7-18); Calcium 8.8 mg/dL (8.5-10.1); Carbon Dioxide 30 mmol/L (21-32); Chloride 103 mmol/L (98-108); Estimated Glomerular Filt Rate > 60; Glucose 82 mg/dL (70-99); Osmolality Calculated 290 mOsm/kg (285-295); Potassium 4.4 mmol/L (3.5-5.1); Sodium 138 mmol/L (136-145); Total Protein 7.5 g/dL (6.4-8.2)
== END 2022-01-19 11:14 | disposition home or self-care (01) ==
LOC: CHSLAB 11:15
PROVIDERS: PCP Internal Medicine Gastroenterology; Visit Provider Nurse Practitioner Family
DX: K80.70 Calculus of gallbladder and bile duct without cholecystitis without obstruction (principal); R79.89 Other specified abnormal findings of blood chemistry
CPT/HCPCS: 36415; 80053

== ENCOUNTER 2022-05-06 11:38 | Outpatient (CLI) | payer BC, SELFPAY ==
[2022-05-06 11:50] LABS: Hematocrit 40.7 % (40.0-54.0); Hemoglobin 13.8 g/dL (14.0-18.0); Mean Corpuscular HGB Conc 33.9 g/dL (32.0-36.0); Mean Corpuscular Hemoglobin 33.7 pg (27.0-31.0); Mean Corpuscular Volume 99.5 fL (78.0-102.0); Mean Platelet Volume 8.4 fl (8.7-11.0); Platelet Count Result 209 K/mm3 (150-420); Red Blood Count 4.09 M/mm3 (4.70-6.10); White Blood Count 4.5 K/mm3 (4.8-10.8)
[2022-05-06 12:07] LABS: Band Neutrophils Percent 0 % (0-6); Basophils Absolute Manual 0.04 K/mm3 (0-0.1); Basophils Percent Manual 1 % (0-1); Eosinophils Absolute Manual 0.27 K/mm3 (0.02-0.5); Eosinophils Percent Manual 6 % (1-6); Lymphocytes Absolute Manual 1.53 K/mm3 (1.1-4.5); Lymphocytes Percent Manual 34 % (18-44); Monocytes Absolute Manual 0.49 K/mm3 (0.1-0.90); Monocytes Percent Manual 11 % (3-9); Neutrophils Absolute Manual 2.16 K/mm3 (1.3-6.7); Neutrophils Percent Manual 48 % (46-73); Platelet Estimate Adequate (Adequate); Total Cells Counted 100
== END 2022-05-06 11:39 | disposition home or self-care (01) ==
LOC: CHSLAB 11:41
PROVIDERS: PCP Family Medicine
DX: C90.01 Multiple myeloma in remission (principal)
CPT/HCPCS: 36415; 85025

== ENCOUNTER 2022-05-28 17:43 | Emergency (ER) | payer BC, SELFPAY ==
--- NOTE | ~2022-05-28 | XR_ITS ---
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 RESULT: Lines, tubes, and devices: None. Lungs and pleura: Streaky bibasilar opacities likely representing atelectasis or scar. No focal cons olidation or pneumothorax. Cardiomediastinal silhouette: Stable. Hiatal hernia. Other: No acute osseous or upper abdominal finding. IMPRESSION: No acute cardiopulmonary process. Reviewed, dictated and finalized at location K. ROL TOWER OPERATOR
[2022-05-28 17:45] VITALS: BP 154/97; PULSE 72; RESP 16; TEMP 36.7; O2SAT 98
[2022-05-28] MEDS: ALBUTEROL SULFATE NEB 2.5 MG/3 ML INH 5 MG INHALATION (18:20)
[2022-05-28 18:21] VITALS: PULSE 72; RESP 20; O2SAT 98
[2022-05-28 18:31] VITALS: PULSE 68; RESP 20
[2022-05-28] MEDS: methylPREDNISolone SOD SUCC 125 MG VIAL IM (18:40)
[2022-05-28 19:01] LABS: Influenza A QL RT-PCR Negative (Negative); Influenza B QL RT-PCR Negative (Negative); SARS-CoV-2 RNA PCR Negative (Negative)
[2022-05-28 19:06] VITALS: BP 133/87; PULSE 66; RESP 12; O2SAT 99
[2022-05-28 19:10] LABS: RSV RNA, RT-PCR Negative (Negative)
--- NOTE | 2022-05-28 19:25 | ED.SOB ---
HPI - SOB/Dyspnea General Chief Complaint: Shortness of Breath/Dyspnea Stated Complaint: shortness of breath Time Seen by Provider: 05/28/22 17:46 Source: patient and RN notes reviewed Mode of arrival: ambulatory Limitations: no limitations History of Present Illness MD elicited complaint: shortness of breath and cough Pertinent past history: COPD Onset (ago): day(s) (3) Context: recent illness Timing: progressively worsening Severity: moderate Relieving factors: oxygen and bronchodilators Known history of: COPD Associated symptoms: cough and wheezing Treatment prior to arrival: none Related Data Home Medications Medication Instructions Recorded Confirmed lenalidomide 10 mg capsule 10 mg PO HS 07/04/20 05/28/22 (Revlimid) aspirin 81 mg tablet,delayed 81 mg PO HS 01/07/22 05/28/22 release (Adult Low Dose Aspirin) Allergies Allergy/AdvReac Type Severity Reaction Status Date / Time No Known Allergies Allergy Verified 05/28/22 17:54 Review of Systems Review of Systems: All systems reviewed & are unremarkable except as noted in HPI and below Constitutional: Constitutional: Reports no additional constitutional complaints Eyes: Eyes: Reports no additional eye complaints ENT: Reports system reviewed and no additional complaints, except as documented Cardiovascular: Cardiovascular: Reports no additional cardiovascular complaints Respiratory: Respiratory: Reports dyspnea and Reports wheezing Gastrointestinal: Gastrointestinal: Reports no additional gastrointestinal complaints Musculoskeletal: Musculoskeletal: Reports no additional musculoskeletal complaints Integumentary/Breasts: Skin/Breast: Reports system reviewed and no additional complaints, except as docu Neurologic: Reports system reviewed and no additional complaints, except as documented Psychiatric: Psychiatric: Reports no additional psychiatric complaints Endocrine: Endocrine: Reports no additional endocrine complaints Hematologic/Lymphatic: Hematologic/Lymphatic: Reports no additional hematologic/lymphatic complaints Allergic/Immunologic: Allergic/Immunologic: Reports no additional allergic/immunologic complaints REPLACED BY [facility] Past Medical History Medical History At risk for bleeding associated with tonsillectomy and adenoidectomy Bronchitis Cholelithiasis with choledocholithiasis Hiatal hernia Multiple myeloma on oral chemo Pneumonia Surgical History Surgical History History of tonsillectomy Hx laparoscopic cholecystectomy 01/10/22 Stem cells transplant status Family History Family History Father Bladder cancer Acute myocardial infarction Social History Social History Social History: he is and his is the durable power of civil attorney. 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 he smoked when he was a teen. code status: Full code Smoking status: Former smoker Tobacco type: cigarettes Alcohol intake: current Drinks per week: 1 Alcohol use details: rare Substance use: never Substance use type: does not use Spiritual care concerns: No Exam Const: General: no acute distress and well nourished Nutritional Appearance: well nourished Orientation/consciousness: patient oriented x3 Limitations: no limitations HENMT: Head: normal to inspection Ears: external ears normal, TM's normal bilaterally and EAC's normal Face/Nose/Sinus: Normal external nose present, Normal nares present, normal facial exam and sinuses nontender Face and sinus: normal facial exam and sinuses nontender Mouth: Yes Normal oral and palatal mucosa present and Yes moist mucous membranes Teeth and gingiva: dentition normal Throat: posterior oropharynx normal Eyes: Conjuncti
[2022-05-28 19:46] VITALS: BP 128/90; PULSE 71; RESP 17; TEMP 36.4; O2SAT 98
== END 2022-05-28 19:57 | disposition home or self-care (01) ==
PROVIDERS: Emergency Provider Emergency Medicine
DX: J40 Bronchitis, not specified as acute or chronic (principal); Z20.822 Contact with and (suspected) exposure to COVID-19
CPT/HCPCS: 71045; 87637; 94640; 96372; 99284; J2930

== ENCOUNTER 2022-08-17 14:16 | Outpatient (CLI) | payer BC, SELFPAY ==
[2022-08-17 14:37] LABS: Basophils Absolute Auto 0.08 K/mm3 (0.00-0.10); Basophils Percent Auto 1.8 % (0.0-1.0); Eosinophils Absolute Auto 0.33 K/mm3 (0.02-0.50); Eosinophils Percent Auto 7.5 % (1.0-6.0); Hematocrit 42.4 % (40.0-54.0); Hemoglobin 14.2 g/dL (14.0-18.0); Immature Granulocyte Absolute 0.02 K/mm3 (0.00-0.00); Immature Granulocyte Percent A 0.5 % (0.0-0.0); Lymphocytes Absolute Auto 0.78 K/mm3 (1.10-4.50); Lymphocytes Percent Auto 17.7 % (18.0-42.0); Mean Corpuscular HGB Conc 33.5 g/dL (32.0-36.0); Mean Corpuscular Hemoglobin 33.3 pg (27.0-31.0); Mean Corpuscular Volume 99.5 fL (78.0-102.0); Monocytes Absolute Auto 0.58 K/mm3 (0.10-0.90); Monocytes Percent Auto 13.2 % (2.0-11.0); Neutrophils Absolute Auto 2.6 K/mm3 (1.7-7.2); Neutrophils Percent Auto 59.3 % (50.0-70.0); Platelet Count Result 225 K/mm3 (150-420); Red Blood Count 4.26 M/mm3 (4.70-6.10); White Blood Count 4.4 K/mm3 (4.8-10.8)
== END 2022-08-17 14:17 | disposition home or self-care (01) ==
LOC: CHSLAB 14:20
PROVIDERS: PCP Family Medicine
DX: C90.01 Multiple myeloma in remission (principal)
CPT/HCPCS: 36415; 85025

== ENCOUNTER 2022-12-10 10:27 | Outpatient (CLI) | payer BC, SELFPAY ==
[2022-12-10 10:49] LABS: Hematocrit 43.1 % (40.0-54.0); Hemoglobin 14.7 g/dL (14.0-18.0); Mean Corpuscular HGB Conc 34.1 g/dL (32.0-36.0); Mean Corpuscular Hemoglobin 33.3 pg (27.0-31.0); Mean Corpuscular Volume 97.7 fL (78.0-102.0); Mean Platelet Volume 8.8 fl (8.7-11.0); Platelet Count Result 192 K/mm3 (150-420); Red Blood Count 4.41 M/mm3 (4.70-6.10); Red Cell Distribution Width 13.7 % (11.6-14.4); White Blood Count 3.6 K/mm3 (4.8-10.8)
[2022-12-10 11:03] LABS: Band Neutrophils Percent 0 % (0-6); Basophils Absolute Manual 0.03 K/mm3 (0-0.1); Basophils Percent Manual 1 % (0-1); Eosinophils Absolute Manual 0.28 K/mm3 (0.02-0.5); Eosinophils Percent Manual 8 % (1-6); Lymphocytes Absolute Manual 1.15 K/mm3 (1.1-4.5); Lymphocytes Percent Manual 32 % (18-44); Monocytes Absolute Manual 0.68 K/mm3 (0.1-0.90); Monocytes Percent Manual 19 % (3-9); Neutrophils Absolute Manual 1.44 K/mm3 (1.3-6.7); Neutrophils Percent Manual 40 % (46-73); Platelet Estimate Adequate (Adequate); Total Cells Counted 100
== END 2022-12-10 10:28 | disposition home or self-care (01) ==
LOC: CHSLAB 10:31
PROVIDERS: PCP Family Medicine
DX: C90.01 Multiple myeloma in remission (principal)
CPT/HCPCS: 36415; 85025

== ENCOUNTER 2023-03-12 11:23 | Outpatient (CLI) | payer BC, SELFPAY ==
[2023-03-12 11:39] LABS: Hematocrit 40.9 % (40.0-54.0); Mean Corpuscular HGB Conc 34.2 g/dL (32.0-36.0); Mean Corpuscular Hemoglobin 33.8 pg (27.0-31.0); Mean Corpuscular Volume 98.8 fL (78.0-102.0); Mean Platelet Volume 8.9 fl (8.7-11.0); Platelet Count Result 219 K/mm3 (150-420); Red Blood Count 4.14 M/mm3 (4.70-6.10); Red Cell Distribution Width 14.2 % (11.6-14.4)
[2023-03-12 12:17] LABS: Band Neutrophils Percent 1 % (0-6); Basophils Absolute Manual 0.04 K/mm3 (0-0.1); Basophils Percent Manual 1 % (0-1); Eosinophils Absolute Manual 0.16 K/mm3 (0.02-0.5); Eosinophils Percent Manual 4 % (1-6); Lymphocytes Absolute Manual 0.92 K/mm3 (1.1-4.5); Lymphocytes Percent Manual 23 % (18-44); Monocytes Absolute Manual 0.52 K/mm3 (0.1-0.90); Monocytes Percent Manual 13 % (3-9); Neutrophils Absolute Manual 2.36 K/mm3 (1.3-6.7); Neutrophils Percent Manual 58 % (46-73); Platelet Estimate Adequate (Adequate); Total Cells Counted 100
== END 2023-03-12 11:24 | disposition home or self-care (01) ==
LOC: CHSLAB 11:26
PROVIDERS: PCP Family Medicine
DX: C90.01 Multiple myeloma in remission (principal)
CPT/HCPCS: 36415; 85025

== ENCOUNTER 2023-09-06 23:12 | Emergency (ER) | payer BC, SELFPAY ==
--- NOTE | ~2023-09-06 | XR_ITS ---
EXAMINATION: XR chest 1V portable DATE: 09/06/2023 23:23 INDICATION: Chest congestion TECHNIQUE: frontal view of the chest was obtained. COMPARISON: Chest radiograph dated 05/28/2022 FINDINGS: Linear bands of discoid atelectasis/scarring at the right mid and bilateral lung bases. No pulmonary edema, pleural effusion or pneumothorax. Arch size is normal. Moderate-sized hiatal hernia. IMPRESSION: 1. Mild discoid atelectasis at the right midlung zone with additional bibasilar atelectasis. 2. Moderate-sized hiatal hernia. Reviewed, dictated and finalized at location A.
[2023-09-06 23:13] VITALS: BP 171/94; PULSE 67; RESP 18; TEMP 36.5; O2SAT 99
[2023-09-06 23:19] VITALS: O2SAT 97
[2023-09-06] MEDS: IPRATROPIUM 0.5 MG/ALBUTEROL SULFATE 2.5 MG AMPUL.NEB 3 ML INHALATION (23:23)
[2023-09-06 23:30] VITALS: PULSE 66; RESP 18; O2SAT 100; O2SAT 96
[2023-09-06 23:31] VITALS: BP 147/86; O2SAT 100
[2023-09-06 23:45] VITALS: O2SAT 96
[2023-09-06 23:46] VITALS: BP 145/80; O2SAT 95
[2023-09-07] VITALS: O2SAT 95
[2023-09-07] LABS: SARS-CoV-2 RNA PCR Negative (Negative)
[2023-09-07 00:01] VITALS: BP 140/82; O2SAT 96
[2023-09-07 00:01] LABS: Influenza A QL RT-PCR Negative (Negative); Influenza B QL RT-PCR Negative (Negative); RSV RNA, RT-PCR Positive (Negative)
--- NOTE | 2023-09-07 00:13 | ED.URI ---
HPI - URI/Sore Throat General Chief Complaint: Upper Respiratory Infection Stated Complaint: upper respiratory Time Seen by Provider: 09/06/23 23:16 Source: patient Mode of arrival: ambulatory Limitations: no limitations History of Present Illness HPI Narrative: this is 4-year-old male who presents with a cough congestion with some mild shortness of breath with audible wheezing with no fever chills no chest pain no nausea vomiting. MD elicited complaint: cough and nasal congestion Onset (ago): day(s) Consistency: constant Severity: mild Related Data Home Medications Medication Instructions Recorded Confirmed lenalidomide 10 mg capsule 10 mg PO HS 07/04/20 09/06/23 (Revlimid) aspirin 81 mg tablet,delayed 81 mg PO HS 01/07/22 09/06/23 release (Adult Low Dose Aspirin) Allergies Allergy/AdvReac Type Severity Reaction Status Date / Time No Known Allergies Allergy Verified 09/06/23 23:16 Review of Systems Review of Systems: All systems reviewed & are unremarkable except as noted in HPI and below PMFSH Past Medical History Medical History At risk for bleeding associated with tonsillectomy and adenoidectomy Bronchitis Cholelithiasis with choledocholithiasis Hiatal hernia Multiple myeloma on oral chemo Pneumonia Surgical History Surgical History H/O hand surgery History of tonsillectomy Hx laparoscopic cholecystectomy 01/10/22 Stem cells transplant status Family History Family History Father Bladder cancer Acute myocardial infarction Social History Social History Social History: he is and his is the durable power of transactional attorney. 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 he smoked when he was a teen. code status: Full code Smoking status: Former smoker Tobacco type: cigarettes Alcohol intake: current Drinks per week: 1 Alcohol use details: rare Substance use: never Substance use type: does not use Spiritual care concerns: No Exam Const: General: healthy appearing and no acute distress Nutritional Appearance: well nourished HENMT: Head: normal to inspection Eyes: Conjunctivae: conjunctivae normal Chest: Chest palpation & inspection: normal inspection of the chest Resp: Effort & Inspection: normal respiratory effort Auscultation: wheezes Cardio: Rate: regular rate Rhythm: regular rhythm GI: GI Palp: Yes Soft to palpation Skin: General skin exam: normal color Rashes: no rashes Neuro: General: patient oriented x3 Cranial nerves: Yes Nystagmus not present Extrem: General: normal to inspection Psych: Mental Status: mental status grossly normal Course Course Emergency Course: chest x-ray with no acute abnormalities patient did receive breathing treatment with his breathing wheezing and had COVID influenza were negative RSV that was positive will treat patient for an upper respiratory tract infection and give a dose of Zithromax and prednisone. Vital Signs Vital signs: Vital Signs Oxygen Delivery Room Air 09/06/23 23:12 Temperature 36.5 C 09/06/23 23:13 Pulse Rate 66 09/06/23 23:30 Respiratory Rate 18 09/06/23 23:30 Blood Pressure 171/94 H 09/06/23 23:13 Pulse Oximetry 96 09/06/23 23:30 Oxygen Delivery Room Air 09/06/23 23:13 MDM - URI/Sore Throat Lab Data Labs: Lab Results 09/06/23 Range/Units 23:16 Influenza A (RT-PCR) Negative (Negative) Influenza B (RT-PCR) Negative (Negative) RSV (RT-PCR) Positive A (Negative) SARS-CoV-2 RNA (RT-PCR) Negative (Negative) Critical Care Time Critical Care Time Critical Care Time: No Discharge Plan Discharge Clinical Impression: Respiratory syncytial virus (RSV)
[2023-09-07 00:15] VITALS: O2SAT 95
[2023-09-07 00:16] VITALS: BP 142/86; O2SAT 94
[2023-09-07] MEDS: predniSONE 20 MG TABLET PO (00:23)
[2023-09-07] MEDS: AZITHROMYCIN 250 MG TABLET 500 MG PO (00:23)
== END 2023-09-07 00:28 | disposition home or self-care (01) ==
PROVIDERS: Emergency Provider Emergency Medicine; PCP Family Medicine
DX: J06.9 Acute upper respiratory infection, unspecified (principal); B97.4 Respiratory syncytial virus as the cause of diseases classified elsewhere; Z79.82 Long term (current) use of aspirin; Z87.891 Personal history of nicotine dependence; Z20.822 Contact with and (suspected) exposure to COVID-19
CPT/HCPCS: 71045; 87637; 94640; 99283; A9270; J7512

== ENCOUNTER 2023-10-23 13:36 | Emergency (ER) | payer BC, SELFPAY ==
--- NOTE | 2023-10-23 13:40 | ED.GENADULT ---
HPI - General Adult General Chief complaint: Abdominal Pain Stated complaint: Hernia Time Seen by Provider: 10/23/23 13:50 Source: patient, RN notes reviewed and old records reviewed Mode of arrival: ambulatory Limitations: no limitations History of Present Illness HPI narrative: 58-year-old male presents to the [facility] with concerns of a hernia. Right inguinal hernia. Patient reports that he was sent here by his job for a workup for hernia. patient was seen by Dr. Berger 06/26/23. Per Medical record report was to have surgical repair. Did not have the surgery done, did not follow-up with Dr. Berger Patient has no redness, new pain. Hernia is reducible Explained to patient that we do not do blood work nor additional imaging. Related Data Home Medications Medication Instructions Recorded Confirmed lenalidomide 10 mg capsule 10 mg PO HS 07/04/20 10/23/23 (Revlimid) aspirin 81 mg tablet,delayed 81 mg PO HS 01/07/22 10/23/23 release (Adult Low Dose Aspirin) Allergies Allergy/AdvReac Type Severity Reaction Status Date / Time No Known Allergies Allergy Verified 10/23/23 13:48 Review of Systems Review of Systems: All systems reviewed & are unremarkable except as noted in HPI and below Constitutional: Constitutional: Reports no additional constitutional complaints Eyes: Eyes: Reports no additional eye complaints ENT: Reports system reviewed and no additional complaints, except as documented Cardiovascular: Cardiovascular: Reports no additional cardiovascular complaints, Denies chest pain and Denies dyspnea Respiratory: Respiratory: Reports no additional respiratory complaints, Denies chest congestion, Denies cough and Denies dyspnea Gastrointestinal: Gastrointestinal: Reports as per HPI, Denies abdominal pain, Denies nausea and Denies vomiting Musculoskeletal: Musculoskeletal: Reports no additional musculoskeletal complaints Integumentary/Breasts: Skin/Breast: Reports system reviewed and no additional complaints, except as docu Neurologic: Reports system reviewed and no additional complaints, except as documented Psychiatric: Psychiatric: Reports no additional psychiatric complaints Allergic/Immunologic: Allergic/Immunologic: Reports no additional allergic/immunologic complaints PMFSH Past Medical History Medical History At risk for bleeding associated with tonsillectomy and adenoidectomy Bronchitis Cholelithiasis with choledocholithiasis Hiatal hernia Multiple myeloma on oral chemo Pneumonia Surgical History Surgical History H/O hand surgery History of tonsillectomy Hx laparoscopic cholecystectomy 01/10/22 Stem cells transplant status Family History Family History Father Bladder cancer Acute myocardial infarction Social History Social History Social History: he is and his is the durable power of civil litigation attorney. 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 he smoked when he was a teen. code status: Full code Smoking status: Former smoker Tobacco type: cigarettes Alcohol intake: current Drinks per week: 1 Alcohol use details: rare Substance use: never Substance use type: does not use Spiritual care concerns: No Comments At the time of my signature, I reviewed and agree with the nursing past medical, surgical, social, and family history. There is no relevant family history pertinent to the patient complaint. Exam Const: General: cooperative, healthy appearing, comfortable, no acute distress, well developed, alert and well nourished Nutritional Appearance: well nourished Orientation/consciousness: patient oriented x3 Limitations: no limitations HENMT: Head: normal to inspection Ears: hearing grossl
[2023-10-23 13:52] VITALS: BP 164/89; PULSE 67; RESP 16; TEMP 36.5; O2SAT 98
== END 2023-10-23 14:10 | disposition home or self-care (01) ==
PROVIDERS: Emergency Provider Nurse Practitioner
DX: K40.90 Unilateral inguinal hernia, without obstruction or gangrene, not specified as recurrent (principal); Z87.891 Personal history of nicotine dependence; C90.00 Multiple myeloma not having achieved remission; Z79.60 Long term (current) use of unspecified immunomodulators and immunosuppressants; Z94.84 Stem cells transplant status; Z79.82 Long term (current) use of aspirin
CPT/HCPCS: 99211; G0463